=== PATIENT | male | born 1945 | race Caucasian/White ===

== ENCOUNTER → 2021-05-31 07:15 | Outpatient (CLI) | payer MEDICARE, SELFPAY ==
--- NOTE | 2021-05-31 07:25 | CT_ITS ---
PROCEDURE: CT LUNG SCREENING CLINICAL INDICATION: NICOTINE DEPENDENCE COMPARISON: CT CHW CT CHEST W/ CONTRAST from 06/20/2015 TECHNIQUE: The exam was performed on a GE Light Speed [address] scanner using 2.90 mGy CTDI. A low dose helical CT CHEST was performed on a multi-detector scanner. All CT scans at the facility use one or more dose reduction, viz: automated exposure control, ma/kV adjustment per patient size (including targeted exams where dose is matched to indication, i.e. head), or iterative reconstruction technique. The LDCT was performed in a facility that meets the criteria for the screening program. Data regarding this exam was submitted to ACR which is an approved registry. The order for this exam indicates that it came as a result of a lung cancer screening counseling shard decision-making visit that included all the elements required of such a visit including smoking cessation. The radiologist interpreting this exam meets the CMS criteria for the LDCT lung cancer screening program. The exam is reported using the Lung-RADS classification scale and reported to the ACR registry. NOTE: This study was performed for the specific purposes of lung cancer screening and is not an alternative to diagnostic chest CT. RADIATION DOSE: CTDI vol(CT dose Index-volume) = 2.90mG DLP (Dose Length Product) = 123. Five mGcm FINDINGS: COPD with severe panlobular emphysematous changes and multiple areas of scarring. A bulla is present in the left upper lobe with an air-fluid level. There is an area of parenchymal opacity along the inferior aspect of the right major fissure measuring 3 by 1 cm and may be due to an area of scarring. This was not present on the previous exam. Neoplastic process is not excluded and PET CT is suggested for further evaluation. There is a subpleural opacity in the left upper lobe which may be due to an area scarring with a central lucency. Scarring is noted along the left major fissure superiorly inferior to the bulla which contains an air-fluid level. The trachea is prominent. There is a nodular appearing soft tissue density along the left lateral aspect of the trachea 3 cm proximal to the anna. This area measures 9 mm and could be related to some adherent mucus. Repeat chest CT following prominent coughing neck confirm. OTHER FINDINGS: Coronary artery calcifications. Mild prominence of the ascending aorta at 4 cm. IMPRESSION: Lung-RADS Category 4A Suspicious Follow-up: 3 x 1 cm opacity along the right major fissure inferiorly. The this may be due to an area of scarring. Neoplasm is not excluded. [address] Chest without and with contrast or PET/CT Severe emphysematous changes. There is an air-fluid level within the left upper lobe bulla consistent with underlying infected bulla. There is also nodular opacity along the left aspect of the trachea. Repeat chest CT with excessive coughing may confirm that this is adherent mucus as opposed to a nodule. Consider pulmonology consult. Dictated by: Omer Hutchison MD 06/05/2021 09:53 Omer Hutchison MD in [place] 06/05/2021 09:53
== END ==
PROVIDERS: PCP Family Medicine; Visit Provider Family Medicine
DX: Z87.891 Personal history of nicotine dependence (principal); Z12.2 Encounter for screening for malignant neoplasm of respiratory organs; R06.02 Shortness of breath
CPT/HCPCS: 71271; 94618

== ENCOUNTER → 2021-09-06 11:57 | Outpatient (CLI) | payer MEDICARE, MEDICAID, SELFPAY ==
--- NOTE | 2021-09-06 12:08 | CT_ITS ---
PROCEDURE INFORMATION: Exam: CT Chest Without and With Contrast; Diagnostic Exam date and time: 09/06/2021 12:08 PM Age: 76 years old Clinical indication: Abnormal findings; Lung mass or nodule; Not specified; Patient HX: Follow-up nodule; Additional info: Follow up TECHNIQUE: Imaging protocol: Diagnostic computed tomography of the chest without and with contrast. Radiation optimization: All CT scans at this facility use at least one of these dose optimization techniques: automated exposure control; mA and/or kV adjustment per patient size (includes targeted exams where dose is matched to clinical indication); or iterative reconstruction. Contrast material: ISOVUE; Contrast volume: 75 ml; Contrast route: IV; COMPARISON: [facility] CT CHEST W/ CONTRAST 06/20/2015 9:38 AM FINDINGS: Lungs: Severe upper lobe predominant emphysema with extensive scattered fibronodular scarring. Unchanged spiculated 1.6 x 1.6 x 3.0 cm nodule in the anterior basal right lower lobe adjacent to the fissure (series 3, image 70), which appears to have central cavitation, limiting evaluation for enhancement. Unchanged 2.5 x 1.1 cm zone of plaque-like pleural thickening in the superior segment of the right lower lobe (series 3, image 39). Interval development of an irregularly shaped 4.0 x 3.3 cm mass-like opacity with mild heterogeneous enhancement in the left lower lobe, likely representing pneumonia given short-term interval development. Airway: Previously demonstrated nodular foci along the tracheal wall are not clearly seen currently, probably represented retained secretions/debris that have since been cleared. Pleural spaces: Similar appearance of fluid within a large bulla near the left apex, which could represent infected bulla, or could represent a chronic loculated effusion given the adjacent scarring. Heart: Normal heart size. Scattered mild coronary calcifications, not formally quantified on this study. No pericardial effusion. Aorta: Fusiform ectasia of the ascending thoracic aorta, measuring up to 3.9 cm in caliber. No dissection. Lymph nodes: No enlarged lymph nodes. Bones/joints: Several old rib fractures bilaterally. Chronic mild anterior wedging of midthoracic vertebral bodies. Mild spondylosis. Soft tissues: Unremarkable. IMPRESSION: 1. Spiculated 1.6 x 1.6 x 3.0 cm nodule in the right lower lobe anterior to the fissure is unchanged compared to recent study of 05/31/2021, and remains indeterminate/suspicious. Advise either PET-CT, sampling/excision, or continued follow-up as appropriate. (Reference: Petros) 2. Ill-defined pneumonia in the left lower lobe. 3. Similar appearance of fluid within a left apical bulla, possibly related to an infectious process, versus loculated fluid due to adjacent scarring. 4. Severe emphysema. 5. Unchanged borderline aneurysmal dilation of the ascending thoracic aorta. References: Petros Valdez, et al. Guidelines for Management of Incidental Pulmonary Nodules Detected on CT Images: From the Fleischner Society 2017. Radiology. 2017;284(1):228-243.
[2021-09-06 12:38] LABS: Blood Urea Nitrogen 8 mg/dl (9-20); Estimated Glomerular Filt Rate 110 ml/min (>60); GFR (African American) 133 ML/MIN (>60)
== END ==
PROVIDERS: PCP Family Medicine; Visit Provider Family Medicine
DX: Z09 Encounter for follow-up examination after completed treatment for conditions other than malignant neoplasm (principal)
CPT/HCPCS: 36415; 71270; 82565; 84520; Q9967

== ENCOUNTER → 2022-01-16 08:32 | Outpatient (CLI) | payer MEDICARE, MEDICAID, SELFPAY ==
--- NOTE | 2022-01-16 08:32 | CT_ITS ---
FINAL REPORT TECHNIQUE: Axial images were obtained from the lung apex to the mid abdomen by computed tomography. Coronal reformatted images were obtained. This study was performed with techniques to keep radiation doses as low as reasonably achievable, (ALARA). Individualized dose reduction techniques using automated exposure control or adjustment of mA and/or kV according to the patient''s size were employed. CLINICAL HISTORY: Nodule, very soa today. smoker COMPARISON: September 06, 2021 FINDINGS: There is no axillary adenopathy. There is no hilar or mediastinal adenopathy. Heart size is normal. There is no pericardial or pleural effusion. Limited images of the upper abdomen demonstrates ectasia of the ascending aorta measuring 4.0 cm, stable. On the lung window images there is severe emphysema. There is moderate pulmonary scarring. There is a stable 1.6 cm spiculated nodular opacity in the anterior right lower lobe with possible cavitary component. There is a 2.5 x 1.0 stable pleural based soft tissue thickening in the posterior right lower lobe. There is a spiculated soft tissue opacity in the lateral left lower lobe measuring 3.7 x 2.0 cm and previously measured 3.8 x 1.3 cm at the same level. It appears visually larger and it's appearance is worrisome for a neoplasm or could possibly represent organizing pneumonia. IMPRESSION: Spiculated soft tissue opacity in the lateral left lower lobe, worrisome for neoplasm or possibly organizing pneumonia. Recommend PET-CT and/or CT-guided FNA for further evaluation. Stable spiculated nodular opacity in the anterior right lower lobe. Stable pleural based soft tissue thickening in the posterior right lower lobe. Stable ectasia of the ascending aorta. Reviewed, Interpreted and Dictated by Ric Wade III, MD Transcribed by Rukhsana Murphy Authenticated by Ric Wade III, MD on 01/16/2022 10:10:36 AM [facility]
--- NOTE | 2022-01-16 10:15 | PC.NURSE ---
PFT Completed without incident. Albuterol 0.083% given via HHN, per written protocol, Pt tolerated tx well. 6 Minute Walk Test attempted Pt walked for 3 minutes and stopped due to SOB. See further notes on 6 Minute Walk Test form. Lowest SPO2 reading for duration of walking and total test 96%.
== END ==
PROVIDERS: PCP Family Medicine; Visit Provider Internal Medicine Pulmonary Disease
DX: R91.8 Other nonspecific abnormal finding of lung field (principal); R06.00 Dyspnea, unspecified
CPT/HCPCS: 71250; 94060; 94618; 94726; 94729; 94762

== ENCOUNTER 2022-11-20 18:25 | Emergency (ER) | payer MEDICARE, MEDICAID, SELFPAY ==
[2022-11-20] VITALS (9 sets, daily range): BP systolic 117–147; BP diastolic 52–86; PULSE 71–87; RESP 19; TEMP 36.7–36.9; O2SAT 95–99; BMI 17.6
--- NOTE | 2022-11-20 18:50 | XR_ITS ---
PROCEDURE INFORMATION: Exam: XR Chest Exam date and time: 11/20/2022 7:21 PM Age: 77 years old Clinical indication: Patient HX: Dyspnea, smoker. TECHNIQUE: Imaging protocol: Radiologic exam of the chest. Views: 1 view. COMPARISON: CT CHEST WO CON 01/16/2022 8:47 AM FINDINGS: Lungs: Moderate generalized hyperexpansion and diaphragmatic flattening consistent with severe emphysema. Pulmonary vasculature grossly normal. Somewhat bandlike consolidative densities in the left upper lobe are new/increased since CT 01/16/2022. This could represent pneumonia or atelectasis. Can not exclude pleural-based mass lesion laterally with somewhat rounded component measuring 3.5 cm diameter extending to the pleural margin. Recommend either nonemergent CT assessment or radiographic follow-up to document clearance with treatment. Pleural spaces: No pleural effusion. No pneumothorax. Heart/Mediastinum: Heart size normal. No tracheal/mediastinal shift. Bones/joints: No acute osseous abnormalities are identified. Osteopenia. IMPRESSION: 1. New alveolar opacities in the left upper lobe extending to the lateral pleural margin with somewhat rounded components. This could represent pneumonia, atelectasis, or underlying mass lesion. Recommend nonemergent postcontrast chest CT, or further short-term radiographic follow-up to document clearance with treatment. 2. Underlying severe emphysematous changes.
--- NOTE | 2022-11-20 18:53 | ECG_ITS ---
APPROVED REPORT Exam: Resting ECG HR:77 bpm ECG Measurements Heart Rate 77 AXES MA 183 P 88 QRSd 84 QRS 82 QT 371 T 87 QTc 402 Conclusion SINUS RHYTHM NORMAL ECG UNCONFIRMED REPORT Electronically signed by : Rigo Pascual MD 11/21/2022 14:13:03
[2022-11-20 19:15] LABS: Coronavirus 19, PCR Not Detected (NotDetected); Influenza A, PCR Not Detected (NotDetected); Influenza B, PCR Not Detected (NotDetected)
[2022-11-20 19:19] LABS: Alanine Aminotransferase 34 U/L (12-78); Albumin Level 3.5 g/dl (3.5-5.0); Albumin/Globulin Ratio 1.1 (1.1-1.8); Alkaline Phosphatase 85 U/L (38-126); Aspartate Amino Transferase 44 U/L (17-59); Bilirubin,Total 0.5 mg/dl (0.2-1.3); Blood Urea Nitrogen 13 mg/dl (9-20); Calcium 8.7 mg/dl (8.4-10.2); Carbon Dioxide 33 mmol/L (22.0-30.0); Chloride 98 mmol/L (98-107); Creatinine Clearance Estimated 45 mL/min (50-200); Estimated Glomerular Filt Rate 110 ml/min (>60); GFR (African American) 133 ML/MIN (>60); Globulin 3.1 g/dL (1.3-3.2); Glucose 103 mg/dl (74-100); Sodium 132 mmol/L (136-145); Total Protein,Serum 6.6 g/dl (6.3-8.2)
[2022-11-20 19:28] LABS: Basophils % 0.3 % (0.1-2.0); Eosinophils # 0.1 K/mm3 (0.0-0.4); Eosinophils % 0.6 % (0.1-12.0); Hematocrit 35.8 % (42.0-52.0); Hemoglobin 11.5 g/dL (14.1-18.0); Lymphocytes # 0.8 K/mm3 (0.7-4.5); Lymphocytes % 6.4 % (10-50); Mean Corpuscular HGB Conc 32.2 g/dL (31.8-35.4); Mean Corpuscular Hemoglobin 27.6 pg (27.0-31.2); Mean Corpuscular Volume 85.7 fl (80-94); Monocytes # 0.7 K/mm3 (0.1-1.0); Neutrophils % 86.6 % (37.0-80.0); Platelet Count 607 K/mm3 (142-424); Red Blood Count 4.18 M/mm3 (4.60-6.20); Red Cell Distribution Width 13.8 % (11.5-17.5); White Blood Count 11.6 K/mm3 (4.8-10.8)
[2022-11-20 19:33] LABS: NT Pro Brain Natriuretic Pep. 177 pg/mL (0-450)
--- NOTE | 2022-11-20 19:35 | HMH.EDGENADL ---
Discharge Plan Disposition Patient Disposition: Home, Self-Care Condition: Good Prescriptions Prescriptions: New levofloxacin 500 mg tablet 500 mg PO DAILY 10 Days Qty: 9 0RF prednisone 10 mg tablet 10 mg PO BID 5 Days Qty: 10 0RF No Action Spiriva Respimat 2.5 mcg/actuation mist 2 inh INHALATION DAILY albuterol sulfate [ProAir HFA] 90 mcg/actuation HFA aerosol inhaler 2 puff INHALATION QID ipratropium-albuterol 0.5 mg-3 mg(2.5 mg base)/3 mL solution for nebulization 3 ml INHALATION QID PRN (Reason: shortness of breath or wheezing) 90 Days Qty: 270 3RF Referrals Follow up/Referrals: Taylor Richmond APRN [Primary Care Provider] - See instructions Hemal Zavala MD [Physician] - See instructions (End-stage COPD, discussed oxygen therapy) Clinical Impressions Clinical Impression: Community acquired pneumonia, Acute exacerbation of chronic obstructive airways disease Instructions Patient Instructions: Pneumonia-Adult, DI for Chronic Obstructive Pulmonary Disease, DI for Shortness of Breath Discharge ED Provider: Jensen Bacon General Adult HPI <Jensen Bacon MD - Last Filed: 11/20/22 20:33> General Chief complaint: Shortness of Breath/Dyspnea Stated complaint: SOA Time Seen by Provider: 11/20/22 18:45 Mode of Arrival: Ambulatory Source of Information: Patient Limitations: No Limitations Description of Symptoms (Recalled from ER Triage Doc. by RN): 77 m presents with chronic complaints of shortness of air and dyspnea on exertion. Patient explains that he is in between PCP's and is trying to get oxygen at home. Denies fever, chills, chest pain History of Present Illness HPI narrative: This is a 77-year-old male with history of COPD on numerous daily inhalers presenting with shortness of breath. Patient states that he has been short of breath since July. No acute changes since that time. He is concerned because he has been getting more short of breath since that time chronically. Denies fevers, chills, new or worsening cough, chest pain, weakness, vision changes, back pain, abdominal pain, nausea, vomiting, or any other concerns at this time. Patient states that he is unable to walk more than 40 feet or exert himself heavily because he feels short of breath. Related Data Home Medications Medication Instructions Recorded Confirmed albuterol sulfate 90 mcg/actuation 2 puff inhalation QID COPD 10/31/21 11/20/22 aerosol inhaler (ProAir HFA) tiotropium bromide 2.5 2 inh inhalation DAILY COPD 10/31/21 11/20/22 mcg/actuation mist for inhalation (Spiriva Respimat) Previous Rx's Medication Instructions Recorded ipratropium 0.5 mg-albuterol 3 mg 3 ml inhalation QID PRN shortness 11/02/21 (2.5 mg base)/3 mL nebulization of breath or wheezing 90 days #270 soln mL levofloxacin 500 mg tablet 500 mg PO DAILY 10 days #9 tabs 11/20/22 prednisone 10 mg tablet 10 mg PO BID 5 days #10 tabs 11/20/22 Allergies Allergy/AdvReac Type Severity Reaction Status Date / Time Penicillins AdvReac Intermediate Unknown Verified 01/22/22 13:37 allergy reaction PFSH <Jensen Bacon MD - Last Filed: 11/20/22 20:33> [facility] Disclaimer: The information contained in this section may have been updated after the patient was seen, as this information can be updated by other users. Social History Smoking Status: Current every day smoker tobacco type: cigarettes packs per day: 1 alcohol intake: current current occupational status: retired Travel in the last 8 weeks: None <Jensen Bacon MD - Last Filed: 11/20/22 20:33> ROS Obtained: Yes All systems reviewed & no additional complaints except as documented Physical Exam <Jensen Bacon MD - Last Filed: 11/20/22 20:33> General General appearance: alert, in no apparent distress and other (Breathing through pursed lips) Head Head exam: atraumatic, normocephalic and normal inspection Eye Eye exam: Present normal appeara
[2022-11-20 19:45] LABS: Troponin I < 0.01 ng/ml (0.00-0.034)
[2022-11-20 19:47] LABS: MANUAL DIFFERENTIAL MANUAL DIFFERENTIAL (MANUAL DIFF)
--- NOTE | 2022-11-20 20:00 | PC.NURSE ---
Room air saturation of 96% recorded during ambulation. notified.
[2022-11-20 20:14] LABS: VBG HCO3 28.2 mmol/L (23-30); VBG Oxygen Saturation 44.4 % (50-70); VBG PCO2 49.6 mmol/L (35-51); VBG PH 7.37 mmol/L (7.31-7.41); VBG PO2 26.4 mmol/L (28-40); VBG Total CO2 29.7 mmol/L (23-27)
--- NOTE | 2022-11-20 20:15 | CT_ITS ---
PROCEDURE INFORMATION: Exam: CT Chest Without Contrast; Diagnostic Exam date and time: 11/20/2022 8:25 PM Age: 77 years old Clinical indication: Abnormal findings; Abnormal radiologic exam of lung or chest; Additional info: SOB TECHNIQUE: Imaging protocol: Diagnostic computed tomography of the chest without contrast. Radiation optimization: All CT scans at this facility use at least one of these dose optimization techniques: automated exposure control; mA and/or kV adjustment per patient size (includes targeted exams where dose is matched to clinical indication); or iterative reconstruction. REPORTING DATA: Count of CT and Cardiac NM exams in prior 12 months: This patient has received [address] and 0 known cardiac nuclear medicine studies in the 12 months prior to the current study. COMPARISON: CT CHEST WO CON 01/16/2022 8:47 AM FINDINGS: Thyroid: The visualized thyroid gland is unremarkable. Lungs: Severe panlobular emphysematous changes involving the mid and upper lung broussard most severely. New alveolar opacities in the anterolateral left upper lobe extending into the perihilar region with mild local volume loss. New bandlike alveolar density with consolidative components in the lateral right lower lobe superior segment along the major fissure. This could represent multifocal pneumonia or atelectasis. Recommend CT follow-up to document clearance with treatment to exclude underlying mass. Previous masslike ovoid region in the left lower lobe seen on 01/16/2022 has significantly regressed in size, currently 2.3 x 1.0 cm, favoring regressing organizing pneumonia or post treatment response if there is history of malignancy. Granulomatous calcification in the spleen. Pleural spaces: Small left pleural effusion. No pneumothorax. Heart: Heart size normal. Mediastinal space: The esophagus is largely contracted without gross abnormality. Lymph nodes: No supraclavicular or axillary adenopathy. No mediastinal or hilar adenopathy. Vasculature: Aneurysmal dilatation of the ascending aortic segment at 4.4 cm diameter is unchanged from 01/16/2022. No evidence of acute rupture. No gross features of dissection by noncontrast technique. No mediastinal hematoma. Question mild dilatation of the central pulmonary arteries suspicious for pulmonary arterial hypertension. Bones/joints: No acute osseous abnormalities are identified. Osteopenia. 6 mm bone island in the right posterior 7th rib unchanged. Mild midthoracic spondylosis and multilevel disc degenerative changes. Soft tissues: Paucity of fat suspicious for generalized cachexia. IMPRESSION: 1. New consolidative alveolar densities in the peripheral left upper lobe extending to the left superior hilar distribution, and additional consolidative density in the peripheral right lower lobe superior segment. These are somewhat bandlike and might represent atelectasis in large part although can not exclude multifocal pneumonia. No definite underlying mass lesions are appreciated although recommend CT follow-up to document clearance given the somewhat rounded nature. 2. The previous masslike density in the left lower lobe superior segment on 01/16/2022 is significantly regressed, consistent with regressing changes of prior organizing pneumonia, versus post treatment response if there is history of malignancy. 3. Aneurysmal dilatation of the ascending aorta at 4.4 cm diameter is unchanged without evidence of rupture or dissection. 4. Severe emphysematous changes and mild changes of pulmonary arterial hypertension. 5. Additional nonemergent findings detailed above. Electronically
[2022-11-20 21:18] LABS: Lymphocytes % 9 % (10-50); Monocytes % 3 % (2-9); Neutrophils % 88 % (42-76); Total Cells Counted 100
[2022-11-20 21:20] LABS: Ovalocytes 1+; Platelet Estimate Normal
== END 2022-11-20 21:31 | disposition home or self-care (01) ==
PROVIDERS: Emergency Provider Emergency Medicine; PCP Nurse Practitioner Family
DX: J18.9 Pneumonia, unspecified organism (principal); J44.1 Chronic obstructive pulmonary disease with (acute) exacerbation; F17.210 Nicotine dependence, cigarettes, uncomplicated; Z20.822 Contact with and (suspected) exposure to COVID-19
CPT/HCPCS: 71045; 71250; 80053; 82803; 83880; 84484; 85007; 85025; 93005; 96374; 99285; C9803; U0003; U0005

== ENCOUNTER → 2022-12-31 09:27 | Outpatient (CLI) | payer MEDICARE, MEDICAID, SELFPAY ==
[2022-12-28 13:02] LABS: Basophils # 0.1 K/mm3 (0-0.2); Basophils % 0.6 % (0.1-2.0); Eosinophils % 0.2 % (0.1-12.0); Hemoglobin 11.4 g/dL (14.1-18.0); Lymphocytes # 0.8 K/mm3 (0.7-4.5); Lymphocytes % 5.2 % (10-50); Mean Corpuscular HGB Conc 29.9 g/dL (31.8-35.4); Mean Corpuscular Hemoglobin 26.2 pg (27.0-31.2); Mean Corpuscular Volume 87.6 fl (80-94); Mean Platelet Volume 7.6 fl (7.4-10.4); Monocytes # 0.8 K/mm3 (0.1-1.0); Monocytes % 5.2 % (1.7-9.3); Neutrophils # 13.5 K/mm3 (1.8-7.8); Neutrophils % 88.8 % (37.0-80.0); Platelet Count 685 K/mm3 (142-424); Red Blood Count 4.35 M/mm3 (4.60-6.20); Red Cell Distribution Width 14.6 % (11.5-17.5); White Blood Count 15.2 K/mm3 (4.8-10.8)
[2022-12-28 13:04] LABS: MANUAL DIFFERENTIAL MANUAL DIFFERENTIAL (MANUAL DIFF)
[2022-12-28 14:09] LABS: Lymphocytes % 5 % (10-50); Monocytes % 2 % (2-9); Neutrophils % 93 % (42-76); Platelet Estimate Marked Increase; Total Cells Counted 100
[2022-12-28 14:10] LABS: RBC Morphology Normal
[2023-01-01 18:13] LABS: QuantiFERON-TB Gold Plus Negative (Negative)
[2023-01-02 00:03] LABS: Aspergillus flavus Negative (Neg:<1:1); Aspergillus fumigatus Negative (Neg:<1:1); Aspergillus niger Negative (Neg:<1:1); Blastomyces Antibody Negative (Neg:<1:1)
== END ==
PROVIDERS: PCP Family Medicine; Visit Provider Internal Medicine Pulmonary Disease
DX: R06.09 Other forms of dyspnea (principal); J84.10 Pulmonary fibrosis, unspecified; J45.909 Unspecified asthma, uncomplicated; J18.9 Pneumonia, unspecified organism
CPT/HCPCS: 36415; 85007; 85025; 86140; 86480; 86606; 86612; 87070; 87116; 87186; 87205; 87206; 87220

== ENCOUNTER → 2023-02-15 10:08 | Outpatient (CLI) | payer MEDICARE, MEDICAID, SELFPAY ==
--- NOTE | 2023-02-15 10:08 | CT_ITS ---
FINAL REPORT TECHNIQUE: Axial images were obtained from the lung apex to the mid abdomen by computed tomography. Coronal reformatted images were obtained. This study was performed with techniques to keep radiation doses as low as reasonably achievable, (ALARA). Individualized dose reduction techniques using automated exposure control or adjustment of mA and/or kV according to the patient''s size were employed. CLINICAL HISTORY: 3-month follow-up NODULE COMPARISON: 11/20/2022 FINDINGS: There is no axillary adenopathy. There are small mediastinal nodes without evidence of adenopathy. Heart size is normal. There is severe emphysema. There is worsening consolidation in the left upper lobe. There is also worsening volume loss in the left lung with shift of the mediastinum to the left. There has been interval improvement in the focal lateral left upper lobe opacity which now measures 22 mm, previously measured 40 mm. Left lower lobe nodular opacity measures 21 mm, previously measured 24 mm. There is a persistent cavitary area in the posterior left mid thorax which now has a large fluid level within it. Nodular opacity near the right major fissure measures 25 mm, previously measured 30 mm. There is a worsening area of left pleural thickening. Small loculated left effusion is stable. IMPRESSION: Worsening consolidation in the left upper lobe, most likely inflammatory/infectious. Partially improved other previously identified focal opacities. Worsening fluid in a posterior left lung cavity, most likely inflammatory. Recommend additional follow-up CT in 3-6 months. Reviewed, Interpreted and Dictated by Ric Wade III, MD Transcribed by Venessa Aguero Authenticated and [facility]
== END ==
PROVIDERS: PCP Family Medicine; Visit Provider Internal Medicine Pulmonary Disease
DX: R91.8 Other nonspecific abnormal finding of lung field (principal)
CPT/HCPCS: 71250

== ENCOUNTER → 2023-02-15 11:45 | Outpatient (CLI) | payer MEDICARE, MEDICAID, SELFPAY ==
[2023-02-15 13:05] LABS: Basophils % 0.3 % (0.1-2.0); Eosinophils # 0.1 K/mm3 (0.0-0.4); Eosinophils % 0.9 % (0.1-12.0); Hematocrit 34.4 % (42.0-52.0); Hemoglobin 10.6 g/dL (14.1-18.0); Lymphocytes # 0.9 K/mm3 (0.7-4.5); Lymphocytes % 8.6 % (10-50); Mean Corpuscular HGB Conc 30.8 g/dL (31.8-35.4); Mean Corpuscular Hemoglobin 26.1 pg (27.0-31.2); Mean Corpuscular Volume 84.7 fl (80-94); Mean Platelet Volume 7.2 fl (7.4-10.4); Monocytes # 0.7 K/mm3 (0.1-1.0); Monocytes % 6.7 % (1.7-9.3); Neutrophils # 9.2 K/mm3 (1.8-7.8); Neutrophils % 83.5 % (37.0-80.0); Platelet Count 556 K/mm3 (142-424); Red Blood Count 4.06 M/mm3 (4.60-6.20); Red Cell Distribution Width 15.8 % (11.5-17.5)
[2023-02-15 13:39] LABS: Alanine Aminotransferase 33 U/L (12-78); Albumin Level 3.1 g/dl (3.5-5.0); Albumin/Globulin Ratio 1.2 (1.1-1.8); Alkaline Phosphatase 81 U/L (38-126); Anion Gap 16.9 mEq/L (5-15); Aspartate Amino Transferase 29 U/L (17-59); Bilirubin,Total 0.2 mg/dl (0.2-1.3); Blood Urea Nitrogen 12 mg/dl (9-20); Carbon Dioxide 33 mmol/L (22.0-30.0); Chloride 91 mmol/L (98-107); Estimated Glomerular Filt Rate 131 ml/min (>60); GFR (African American) 159 ML/MIN (>60); Globulin 2.6 g/dL (1.3-3.2); Glucose 77 mg/dl (74-100); Potassium 4.9 mmoL/L (3.5-5.1); Sodium 136 mmol/L (136-145); Total Protein,Serum 5.7 g/dl (6.3-8.2)
[2023-02-15 13:44] LABS: C-Reactive Protein 58.3 mg/L (0-4)
== END ==
LOC: LAB 11:46
PROVIDERS: PCP Family Medicine; Visit Provider Internal Medicine Pulmonary Disease
DX: J45.909 Unspecified asthma, uncomplicated (principal); J84.9 Interstitial pulmonary disease, unspecified; R06.09 Other forms of dyspnea
CPT/HCPCS: 36415; 71250; 80053; 85025; 86140

== ENCOUNTER → 2023-02-26 12:04 | Outpatient (CLI) | payer MEDICARE, MEDICAID, SELFPAY ==
--- NOTE | 2023-02-26 12:05 | CA_ITS ---
APPROVED REPORT Exam: Pharmacologic Technologist: Marissa Pires, Ht: 5 ft 11 in Wt: 105 lbs BSA: 1.60 m2 HR: 77 bpm BP: 109/50 mmHg Rhythm: NSR, PACS, EARLY REPOLARIZATION CHANGES, RIGHT CAPELLAN AXIS, BASELINE UPSLOPING ST-ELEVATIONS < 1 MM IN INFEROLATERAL LEADS Medical History Medications: SyMBICORT,,,,, Albuterol,,,,, Spiriva RESPIMAT,,,,, Allergies: PENICILLIN Cardiac Risk Factors: Smoking Stress Test Details Test: LEXISCAN HR Resting HR: 76 bpm Max Heart Rate (APMHR): 144 bpm Max HR Achieved: 87 bpm Target HR (85% APMHR): 122 bpm % of APMHR: 60 Recovery HR: 77 bpm BP Resting BP: 123/51 mmHg Max BP: 125/60 mmHg Recovery BP: 109.0/50.0 mmHg ECG Resting ECG: NSR, PACS, EARLY REPOLARIZATION CHANGES, RIGHTWARD AXIS, BASELINE UPSLOPING ST-ELEVATION < 1 MM IN INFEROLATERAL LEADS Stress ECG: FREQUENT PACS, OCCASIONAL BURSTS OF ATRIAL TACHYCARDIA 4-5 BEATS Clinical Exercise duration: 04:06 min Highest Stage Achieved: Exercise capacity: n/a METs Stress ECG Conclusion PT HAD MILD SOA. NO CP. BASELINE ECG DEMONSTRATES NORMAL SINUS RHYTHM, FREQUENT PACS, AND MINIMAL < [address] ELEVATION IN INFEROLATERAL LEADS FREQUENT PACS AT REST AND DURING STRESS AND AT RECOVERY OCCASIONAL BURSTS OF ATRIAL TACHYCARDIA 4-5 BEATS DURING STRESS NO SIGNIFICANT CHANGES NON-DIAGNOSTIC LEXISCAN STRESS DUE TO BASELINE ABNORMALITIES MYOVIEW IMAGES REPORTED SEPARATELY Test Summary REST 08:17 . . 76 . 123/ 51 . . Stage 1 . . . . . . . Myoview Injected Stage 1 01:00 . . 85 . . . . Stage 2 01:00 . . 84 . 125/ 60 . . Stage 3 01:00 . . 59 . . . . Stage 4 01:00 . . 64 . 107/ 48 . . Stage 4 01:06 . . 76 . 107/ 48 . Stop exercise at 04:06 RECOVERY 01:00 . . 79 . . . . RECOVERY 02:00 . . 82 . 121/ 54 . . RECOVERY 03:00 . . 71 . 121/ 54 . . RECOVERY 04:00 . . 71 . 109/ 53 . . RECOVERY 04:45 . . 80 . 109/ 50 . . Electronically signed by : Karissa Raymond, 02/27/2023 23:04:23
--- NOTE | 2023-02-26 12:05 | NM_ITS ---
APPROVED REPORT Exam: Nuclear Stress Test Indication: chest pain..soa Patient Location: Outpatient Stress Tech: Marissa Pires [place] Tech:Maki An ANDRE RT (R)(N)(M) Ht: 5 ft 11 in Wt: 103 lbs HR: 72 bpm BP: 123/51 mmHg BSA: 1.59 m2 TID: 0.96 BMI: 14.3 History: chest pain..soa Procedure: Patient received 0.4 mg of intravenous Lexiscan, resting heart rate 72 bpm, resting blood pressure 123/51 mmHg, with Lexiscan maximum heart rate achieved was 82 bpm which is 85 % of the maximum predicted heart rate and blood pressure was 125/60 mmHg. With Lexiscan, patient denied any complaint of chest pain. Cardiac Stress and Resting SPECT Images: Cardiac Stress and Resting SPECT images were obtained using technetium 99m Myoview 31.3 mCi stress and 10.32 mCi at rest. Resting and supine stress imaging demonstrate a large-sized, moderate, fixed perfusion defects in the mid to distal anteroseptal and in the apical LV wall. Both defects are no longer visualized with prone stress imaging. Findings are suggestive of soft tissue attenuation, but true perfusion defects cannot be entirely ruled out. Gated imaging demonstrates normal LV global and regional systolic function. LVEF is calculated at 63%. Conclusion: Soft tissue attenuation is present. No definite reversible or fixed perfusion defects. Gated imaging demonstrates normal LV global and regional systolic function. LVEF is calculated at 63%. Electronically signed by : Karissa Raymond, 02/27/2023 23:13:05
== END ==
PROVIDERS: PCP Family Medicine; Visit Provider Physician Assistant
DX: R06.09 Other forms of dyspnea; R07.89 Other chest pain; J43.9 Emphysema, unspecified; R94.31 Abnormal electrocardiogram [ECG] [EKG]; F17.210 Nicotine dependence, cigarettes, uncomplicated
CPT/HCPCS: 78452; 93017; 93306; A9502; J2785

== ENCOUNTER → 2023-04-19 10:49 | Outpatient (CLI) | payer MEDICARE, MEDICAID, SELFPAY ==
[2023-04-19 11:15] LABS: Chloride 99 mmol/L (98-107)
[2023-04-19 11:16] LABS: Potassium 4.4 mmoL/L (3.5-5.1); Sodium 136 mmol/L (136-145)
[2023-04-19 11:18] LABS: Alanine Aminotransferase 19 U/L (12-78); Alkaline Phosphatase 114 U/L (38-126); Aspartate Amino Transferase 28 U/L (17-59); Bilirubin,Total 0.3 mg/dl (0.2-1.3); Blood Urea Nitrogen 11 mg/dl (9-20); Estimated Glomerular Filt Rate 131 ml/min (>60); GFR (African American) 159 ML/MIN (>60)
[2023-04-19 11:19] LABS: Albumin Level 3.7 g/dl (3.5-5.0); Albumin/Globulin Ratio 1.2 (1.1-1.8); Anion Gap 6.4 mEq/L (5-15); Carbon Dioxide 35 mmol/L (22.0-30.0); Globulin 3.2 g/dL (1.3-3.2); Glucose 99 mg/dl (74-100); Total Protein,Serum 6.9 g/dl (6.3-8.2)
[2023-04-19 11:24] LABS: C-Reactive Protein 25.7 mg/L (0-4)
[2023-04-19 14:04] LABS: Basophils % 0.4 % (0.1-2.0); Eosinophils % 1.3 % (0.1-12.0); Hematocrit 38.8 % (42.0-52.0); Hemoglobin 12.5 g/dL (14.1-18.0); Lymphocytes % 8.3 % (10-50); Mean Corpuscular HGB Conc 32.2 g/dL (31.8-35.4); Mean Corpuscular Hemoglobin 27.5 pg (27.0-31.2); Mean Corpuscular Volume 85.5 fl (80-94); Mean Platelet Volume 10.4 fl (7.4-10.4); Monocytes % 8.1 % (1.7-9.3); Neutrophils % 81.8 % (37.0-80.0); Platelet Count 325 K/mm3 (142-424); Red Blood Count 4.54 M/mm3 (4.60-6.20); Red Cell Distribution Width 16.7 % (11.5-17.5); White Blood Count 6.8 K/mm3 (4.8-10.8)
[2023-04-19 14:05] LABS: Eosinophils # 0.1 K/mm3 (0.0-0.4); Lymphocytes # 0.6 K/mm3 (0.7-4.5); Monocytes # 0.6 K/mm3 (0.1-1.0); Neutrophils # 5.5 K/mm3 (1.8-7.8)
== END ==
PROVIDERS: PCP Family Medicine; Visit Provider Internal Medicine Pulmonary Disease
DX: R93.89 Abnormal findings on diagnostic imaging of other specified body structures (principal); A31.0 Pulmonary mycobacterial infection
CPT/HCPCS: 36415; 80053; 85025; 86140

== ENCOUNTER 2023-11-13 14:25 | Outpatient (CLI) | payer MEDICARE, SELFPAY ==
--- NOTE | 2023-11-13 14:26 | CT_ITS ---
FINAL REPORT TECHNIQUE: Axial CT images were performed from the lung apices through the upper abdomen. Coronal reformats were submitted. This study was performed with techniques to keep radiation doses as low as reasonably achievable (ALARA). Individualized dose reduction techniques using automated exposure control or adjustment of mA and/or kV according to the patient's size were employed. CLINICAL HISTORY: 6 mth F/U COMPARISON: 02/15/2023 FINDINGS: There is no axillary adenopathy. There is no hilar or mediastinal mass or adenopathy. Heart size is normal. There is no pericardial or pleural effusion. Limited images of the upper abdomen are unremarkable. There is worsening consolidation in the left upper lobe since the prior with worsening shift of the mediastinum to the left. There has been further improvement in the left upper lobe nodule opacity well seen on image 32 measuring 9 mm, previously measured 23 mm. There is a stable left lower lobe nodule opacity measuring 21 mm, previously measured 21 mm. Left posterior pleural thickening is identified. There is been slight improvement in the cavitary area in the left posterior mid thorax. IMPRESSION: Worsening consolidation and volume loss in the left upper lobe, most likely inflammatory. Further improvement in the left upper lobe nodular opacity and slight improvement in the cavitary area in the left posterior midthorax. Other findings are stable. Recommend additional follow-up in 6 months. Reviewed, Interpreted and Dictated by Ric Wade III, MD Transcribed by Venessa Aguero Authenticated and [facility] [place] [place]
== END 2023-11-13 23:59 ==
LOC: RAD 14:26
PROVIDERS: PCP Family Medicine; Visit Provider Internal Medicine Pulmonary Disease
DX: R91.8 Other nonspecific abnormal finding of lung field (principal)
CPT/HCPCS: 71250

== ENCOUNTER 2025-03-19 12:42 | Outpatient (CLI) | payer MEDICARE, SELFPAY ==
--- OUTSIDE RECORDS SUMMARY | 2025-03-19 12:44 | XMS_ITS | Clinical Summary ---
Author Organization Healthcare Address [facility] [place] [address] Care Team Providers Care Senior [employer] Consultant Name Role Phone Unavailable Primary Care Provider Unavailabl e Social History Tobacco Use Types Packs/Day Years Used Date Smoking Tobacco: Never Assessed Sex and Gender Information Value Date Recorded Sex Assigned at Not on file Legal Sex Male 3:03 PM EDT Gender Identity Not on file Sexual Orientation Not on file Last Filed Vital Signs Vital Sign Reading Time Taken Comments Blood Pressure 124/62 02/26/2023 3:05 PM EDT Pulse 75 02/26/2023 3:05 PM EDT Temperature - - Respiratory Rate - - Oxygen Saturation - - Inhaled Oxygen Concentration - - Weight 47.6 kg (105 lb) 02/26/2023 3:05 PM EDT Height 180.3 cm (5' 11 ) 02/26/2023 3:05 PM EDT Body Mass Index 14.64 02/26/2023 3:05 PM EDT Plan of Treatment Health Maintenance Due Date Last Done Comments [facility]-Depression Screening 1945 [facility]-/Child/Adol SDOH Screenings 1945 [facility]- SDOH Screenings 1965 [facility]-Adult SDOH Screenings 1965 [facility]-DTaP,Tdap,and Td Vaccines (1 - Tdap) 1966 [facility]-Pneumococcal Vaccine: 50+ Years (1 of 1 - PCV) 1997 [facility]-Zoster Vaccines (1 of 2) 1997 [facility]-RSV Vaccine: 60+ Years or (1 - 1-dose 75+ series) 2022 [id number] Vaccine (3 - 2023- season) 2024 08/07/2021, 02/10/2021 [facility]-Influenza Vaccine (Season Ended) 2025 HPV Vaccines Aged Out No longer eligi ble based on patient's age to complete this topic [facility]-HIB Vaccines Aged Out No longer e ligible based on patient's age to complete this topic [facility]-Hepatitis A Vaccines Aged Out No longer eligible based on patient's age to complete this topic [facility]-IPV Vaccines Aged Out No longer e ligible based on patient's age to complete this topic [facility]-Rotavirus Vaccines Aged Out No lo nger eligible based on patient's age to complete this topic
--- NOTE | 2025-03-19 13:00 | CT_ITS ---
FINAL REPORT TECHNIQUE: Thin section axial images were obtained through the paranasal sinuses without contrast. Reconstruction images were obtained from the axial data. Exam was performed using dose reduction techniques such as automated exposure control, adjustment of the mA and kV according to patient size, and use of iterative reconstruction technique. CLINICAL HISTORY: Airway obstruction COMPARISON: None FINDINGS: The paranasal sinuses are clear. There is no air-fluid level or significant mucosal thickening. The maxillary infundibulum are patent bilaterally. There is mild right nasal septal deviation. There is no acute osseous abnormality. Remaining soft tissues are unremarkable. IMPRESSION: No evidence of acute sinusitis. Mild right nasal septal deviation. Reviewed, Interpreted and Dictated by Paola Kemp MD Transcribed by Anat Howard Authenticated and [facility]
== END 2025-03-19 23:59 | disposition home or self-care (01) ==
PROVIDERS: PCP Family Medicine; Visit Provider Nurse Practitioner
DX: J34.2 Deviated nasal septum (principal); J98.8 Other specified respiratory disorders
CPT/HCPCS: 70486

== ENCOUNTER 2025-06-10 10:40 | Outpatient (CLI) | payer MEDICARE, SELFPAY ==
--- OUTSIDE RECORDS SUMMARY | 2025-04-12 14:30 | XMS_ITS | Encounter Summary ---
Author Organization Healthcare Address [address] [id number] Care Team Providers Care Artificial Insemination Technician Name Role Phone Rigo Maza MD Primary Care Provider [phone] Reason for Referral * Imaging (Routine) - Closed Specialty Diagnoses / Procedures Referred By Maricarmen elmore Referred To Contact Radiology Diagnoses Chronic obstructive pulmonary disease, unspecified COPD type (CMS/HCC) History of MAC infection Procedures CT Chest wo IV Contrast Sumit Shipley APRN [address] [address] Phone: tel: fax: Referral ID Status Reason Start Date Expiration Date Visits Re quested Visits Authorized [id number] Closed 04/12/2025 10/12/2026 1 1 * Consultation (Routine) - Closed Specialty Diagnoses / Procedures Referred By Maricarmen elmore Referred To Contact Diagnoses Current smoker Chronic obstructive pulmonary disease, unspecified COPD type (CMS/HCC) History of MAC infection Sumit Shipley APRN [address] [address] Phone: tel: fax: Referral ID Status Reason Start Date Expiration Date Visits Re quested Visits Authorized [id number] Closed 04/12/2025 10/12/2026 1 1 Reason for Visit * Reason Comments Consult Airway obstruction, surgical clearance. * Consultation (Routine) - Closed Specialty Diagnoses / Procedures Referred By Maricarmen t Referred To Contact Pulmonology Diagnoses Airway obstruction System, Provider Not In, [place] [address] [facility] Medicine Specialties [address] [place] [address] Phone: tel: fax: Referral ID Status Reason Start Date Expiration Date V isits Requested Visits Authorized [id number] Closed Specialty Services Required 04/08/2025 10/08/2026 1 1 Encounter Details Date Type Department Care Team (Late st Contact Info) Description 04/12/2025 2:30 PM EDT Office Visit [facility] Medicine Specialties [address] [place] [address] Sumit Shipley, DRIVER LICENSE TECHNICIAN [address] [place] [address] Chronic obstructive pulmonary disease, unspecified COPD type (CMS/HCC) (Primary Dx); Current smoker; History of MAC infection; Multiple lung nodules; Irregular heart rate Social History Tobacco Use Types Packs/Day Years Used Date Smoking Tobacco: Every Day Cigarettes 1 60.7 Started: 1962 Smokeless Tobacco: Never Tobacco Cessation:Ready to Q uit: Not Asked; Counseling Given: Not Answered PHQ-2 Answer Date Recorded Patient Health Questionnaire-2 Score 2 04/12/2025 AUDIT-C Answer Date Recorded Q1: How often do you have a drink containing alc ohol? Never 04/12/2025 Average Number of Drinks Not on file 025 Q3: How often do you have si x or more drinks on one occasion? Never 04/12/2025 Sex and Gender Information Value Date Recorded Sex Assigned at Not on file Legal Sex Male 3:03 PM EDT Gender Identity Not on file Sexual Orientation Not on file documented as of this encounter Last Filed Vital Signs Vital Sign Reading Time Taken Comments Blood Pressure 103/70 04/12/2025 2:05 PM EDT Pulse 93 04/12/2025 2:05 PM EDT Temperature 36.7 C (98.1 F) 04/12/2025 2:05 PM EDT Respiratory Rate - - Oxygen Saturation 96% 04/12/2025 2:05 PM EDT 1 lpm Inhaled Oxygen Concentration - - Weight 45.3 kg (99 lb 13.9 oz) 04/12/2025 2:05 P M EDT Height 180.3 cm (5' 11 ) 04/12/2025 2:05 PM EDT Body Mass Index 13.93 04/12/2025 2:05 PM EDT documented in this encounter Functional Status * Over the past 2 weeks, how often have you been bothered by any of the following problems? Question Answer Date of Assessment Author Little interest or pleasure in doing things More than half the days 04/12/2025 2:13 PM EDT Golden Guzman Feeling down, depressed, or hopeless Not at all 04/12/2025 2:13 PM EDT Svitlana Guzman Patient Health Questionnaire-2 Score 2 04/12/2025 2:13 PM EDT Emelina Guzman documented as of this encounter Miscellaneous Notes * Progress Notes - Sumit Shipley, TAYLOR - 04/12/2025 2:30 PM EDT PULMONARY NEW PATIENT INITIAL VISIT Ric Forde is a 80 y.o. male who presents for initial consultation with a chief complaint of need for pulmonary surgical evaluation. Address: [address] [place] [address] Referring Provider: System, Provider Not In* Primary Care Provider: Rigo Maza MD HISTORY OF PRESENT ILLNESS PMHx includes COPD, MAC infection, lung nodules/mass, current smoker. Pulmonary history obtained from available outside pulm notes and imaging: December 2021: seen in outside pulmonary clinic for lung nodule eval, patient apparently left AMA refusing further evaluation 11/20/2022: CT chest showed new alveolar opacities in the anterolateral PUSHPA extending into the perihilar region with mild local volume loss. 12/30/2022: sputum positive for MAC. 02/15/2023: CT chest showed worsening PUSHPA consolidation with volume loss. Persistent cavitary area in the posterior left mid thorax with new fluid level. Partially improved other focal opacities. MAC treatment was initiated (azithromycin, ethambutol, rifampin). 04/19/2023: seen in outside pulmonary clinic and MAC treatment was continued (azithromycin, ethambutol, rifampin). 06/21/2023: seen in outside pulmonary clinic with improvement in cough and decrease in productive phlegm. Patient has quit smoking. Plan for repeat CT chest Aug 2023. 10/01/2023: patient called outside pulmonary clinic after home health nurse told him his medications were to treat TB. He did not return to clinic or get follow up testing. 11/13/2023: CT chest showed worsening consolidation and volume loss in PUSHPA. Further improvement in PUSHPA nodular opacity and slight improvement in the cavitary are in the left posterior midthorax. Stable LLL nodule. Needs surgical clearance for nasal septoplasty/turbinate reduction Patient reports he saw outside certification and selection specialist for around 9 months. He said all he wanted to do was treat him with pills. He was taking the pills as prescribed then his home health nurse told him thosemedications were for TB. He was very concerned and called his certification and selection specialist. Mr. Forde felt like hisdoctor could not explain the treatment plan well so he stopped taking his medication and never returned to pulmonary clinc. He was diagnosed with COPD many years ago at the [facility]. He is compliant with triple inhaler therapy (Symbicort and Spiriva). He uses albuterol every 4 hours, not really PRN. He does have CORONA. Cough and wheezing are only occasional, worse with humidity. Cough is usually productive of white mucous, never bloody. He bought his own oxygen concentrator and wears 1 lpm AAT and 2 lpm with exertion. He does not wear oxygen at night, denies night time symptoms. His last PFT was likely around [id number]. He continues to smoke 1 PPD, has been smoking for the past 60 years. He does not exacerbate frequently. Never been hospitalized for his breathing. Denies fever, chills, NS, lymphadenopathy. Denies AR. Denies GERD. Social/Exposure/Pertinent Pulmonary History: The patient was born full term and healthy. No history of childhood lung disease. COPD diagnosed many years ago. No known FH of lung disease. He lives in a mobile home with his and dog. No known mold or water damage. No down product use. No humidifier/sauna/hot tub/Jacuzzi use. 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 Past Medical History[1] Surgical History[2] Family History[3] Social History Socioeconomic History Marital status: Spouse name: Not on file Number of children: Not on file Years of education: Not on file Highest education level: Not on file Occupational History Not on file Tobacco Use Smoking status: Every Day Current packs/day: 1.00 Average packs/day: 1 pack/day for 60.5 years (60.5 ttl pk-yrs) Types: Cigarettes Start date: 1962 Smokeless tobacco: Never Vaping Use Vaping status: Never Used Substance and Sexual Activity Alcohol use: Not on file Drug use: Never Sexual activity: Not on file Other Topics Concern Not on file Social History Narrative Not on file Social Drivers of Health Financial Resource Strain: Not on file Food Insecurity: Not on file Transportation Needs: Not on file Physical Activity: Not on file Stress: Not on file Social Connections: Not on file Intimate Partner Violence: Not on file Housing Stability: Not on file Tobacco Use History[4] Allergies[5] Immunization History Administered Date(s) Administered [employer] COVID-19 Vaccine (Blue Cap) 18+ 02/10/2021, 08/07/2021 VACCINE / DOSE Flu Tetanus Pneumovax Shingles Current Medications[6] Tobacco Allergies Meds Problems Med Hx Surg Hx Fam Hx REVIEW OF SYSTEMS Review of Systems Constitutional: Negative for chills, diaphoresis and fever. Respiratory: Positive for cough, shortness of breath and wheezing. Allergic/Immunologic: Negative for environmental allergies. Hematological: Negative for adenopathy. Psychiatric/Behavioral: Negative for sleep disturbance. Assessment Scales: ACT: CAT: MMRC: Breathless Scale Grade 4: Too breathless to leave the house or breathless when dressing or undressing.: 4 PHYSICAL EXAMINATION Visit Vitals BP 103/70 (BP Location: Right arm, Patient Position: Sitting) Pulse 93 Temp 36.7 ??C (98.1 ??F) (Oral) Ht 1.803 m (5' 11 ) Wt 45.3 kg (99 lb 13.9 oz) SpO2 96% Comment: 1 lpm BMI 13.93 kg/m?? Physical Exam Vitals reviewed. Constitutional: General: He is not in acute distress. Appearance: Normal appearance. He is underweight. He is not ill-appearing. HENT: Head: Normocephalic. Eyes: Conjunctiva/sclera: Conjunctivae normal. Pupils: Pupils are equal, round, and reactive to light. Cardiovascular: Rate and Rhythm: Normal rate. Rhythm irregular. Pulmonary: Effort: Pulmonary effort is normal. No respiratory distress. Breath sounds: Decreased air movement present. Decreased breath sounds present. No wheezing, rhonchi or rales. Musculoskeletal: General: Normal range of motion. Cervical back: Normal range of motion. Skin: General: Skin is warm and dry. Coloration: Skin is not pale. Findings: No erythema or rash. Neurological: Mental Status: He is alert and oriented to person, place, and time. Psychiatric: Mood and Affect: Mood normal. Behavior: Behavior normal. Thought Content: Thought content normal. Judgment: Judgment normal. DATA Data Reviewed (personally by me this visit): Laboratory Studies: I personally reviewed recent lab work in EMR. Lab Results Component Value Date WBC 9.43 04/12/2025 HGB 13.7 04/12/2025 HCT 43.8 04/12/2025 MCV 95 04/12/2025 PLT 327 04/12/2025 04/12/2025: AEC 160 IgE pending Alpha 1 pending Radiology Results: I have personally reviewed the images in EMR. CT Chest (11/13/2023) images requested Worsening consolidation and volume loss in the left upper lobe, most likely inflammatory. Further improvement in the left upper lobe nodular opacity and slight improvement in the cavitary area in theleft posterior mid thorax. Other findings are stable. CT Chest (02/15/2023) images requested Worsening consolidation in the left upper lobe, most likely inflammatory/infectious. Partially improved other previously identified focal opacities. Worsening fluid and a posterior left lung cavity, most likely inflammatory. CT Chest (11/20/2022) images requested Severe panlobular emphysematous changes involving the mid and upper lung broussard most severely. New alveolar opacities in the anterolateral left upper lobe extending into the perihilar region with mild local volume loss. New bandlike alveolar density with consolidative components in the lateral right. Pulmonary Function Testing: I have personally reviewed and interpreted these values. (Ordered) Multi-Ox: (04/12/2025) Oxygen Saturation Test Pulse Oximetry at rest: Resting SpO2 (minimum): 97 % Resting HR (max): 88 Resting Oxygen Device: None Resting O2 Flow (liters per minute): 0 Pulse Oximetry during ambulation: Ambulation SpO2 (minimum): 93 % Ambulation HR (max): 104 Ambulation Oxygen Device: None Ambulation Oxygen Flow (liters per minute): 0 Pulse Oximetry during recovery from ambulation: Minutes required to return to resting level: 1 Recovery SpO2: 98 % Recovery HR: 96 Recovery Oxygen Device: None Recovery Oxygen Flow (liters per minute): 0 IMPRESSION 1. Chronic obstructive pulmonary disease, unspecified COPD type (CMS/HCC) 2. Current smoker 3. History of MAC infection 4. Multiple lung nodules 5. Irregular heart rate Orders Placed This Encounter Procedures CT Chest wo IV Contrast Standing Status: Future Expected Date: 05/13/2025 Expiration Date: 10/14/2026 Specific protocol needed?: Radiology to determine What is the patient's sedation requirement?: No Sedation Results Release Delay - 72 Hours: 72 Hours CBC and differential Standing Status: Future Number of Occurrences: 1 Expected Date: 04/12/2025 Expiration Date: 10/14/2026 Release to patient in MyChart: Immediate [1] IgE Standing Status: Future Number of Occurrences: 1 Expected Date: 04/12/2025 Expiration Date: 10/14/2026 Release to patient in MyChart: Immediate [1] [id number] Enzyme Conc and Phenotype (SO) Standing Status: Future Number of Occurrences: 1 Expected Date: 04/12/2025 Expiration Date: 10/13/2026 Release to patient in [facility]: Immediate [1] Follow Up Pulm CT and PFTs same day as follow up, he will need transport assistance arranged Standing Status: Future Expected Date: 05/10/2025 Expiration Date: 05/13/2026 Referral Priority: Routine Referral Type: Consultation Number of Visits Requested: 1 Sputum induction Standing Status: Future Expiration Date: 10/14/2026 ECG Adult (Performed in Heart Station) Standing Status: Future Number of Occurrences: 1 Expected Date: 04/12/2025 Expiration Date: 10/14/2026 Reason for Exam:: irregular HR Multiple Determination Oximetry Standing Status: Future Expected Date: 04/12/2025 Expiration Date: 10/14/2026 Where will this be performed?: PFT Lab Pulmonary function test Standing Status: Future Expected Date: 05/13/2025 Expiration Date: 10/14/2026 Reason for Exam:: PFTs Which PFTs would you like to perform?: Full PFT (Spirometry, Lung Volumes and Diffusion Capacity) Type of spirometry:: Pre and post bronchodilator Where will this be performed?: PFT Lab DISCUSSION/SUMMARY Ric Forde is a pleasant 80 y.o. male who presented today for initial consultation. He was referred by outside ENT for surgical clearance for nasal septoplasty/turbinate reduction. Patient has significant pulmonary history but has not been following with pulmonary so he was referred here. COPD Current smoker -- Has not had PFTs in about 15 years so full PFTs ordered today -- Currently on triple inhaler therapy with Symbicort and Spiriva, would continue this -- Does not exacerbate frequently and has never been hospitalized for a respiratory illness -- He bought his own portable oxygen concentrator and wears 1 lpm AAT and 2 lpm with exertion -- Multi ox performed in office today showed no significant desaturation therefore no indication for oxygen, advised patient of this -- He is a current smoker of 1 PPD (60 pack year history), cessation strongly advised -- Would recommend PCV 20 and pulmonary rehab, can discuss next visit -- He does qualify for LDCT LCS until age 82, CT chest ordered today -- CBC w/diff, IgE, and alpha 1 pending History of MAC infection Lung nodules -- It seems his lung nodules were first noted in 2021, he refused treatment/evaluation at that time -- In 2022 sputum cultures were +MAC and his imaging showed multifocal consolidations/cavitations so treatment with azithromycin, ethambutol, and rifampin was started -- He reports compliance with antibiotics x 9 months but stopped in Sep 2023 and never returned to his certification and selection specialist -- Last CT was in Oct 2023 which showed worsening consolidation/volume loss in PUSHPA but further improvement in nodule opacities and and cavitations -- Cough is not bothersome and is productive of white phlem -- Induced sputum attempted today in office for respiratory cultures including AFB, he was not ableto produce -- CT chest ordered today, will obtain OSH imaging for comparison Irregular HR -- Noted on exam today -- ECG ordered which showed sinus rhythm with marked sinus arrhythmia as well as anterolateral infarct, age undetermined -- Referral placed to Cardiology, can refer to local cardiology if patient prefers Pulmonary Health Maintenance: Pneumonia Vaccination: recommend Influenza Vaccination: recommend COVID Vaccination: recommend RSV Vaccination: recommend LDCT Lung Cancer Screening: recommend I will follow-up with the patient in 1 month, or sooner if needed. The patient was agreeable to theabove plan, and all questions were answered accordingly. I spent 49 minutes performing all or some of the following: Reviewing the history, performing an examination and evaluation, entering clinical information into the EHR, interpreting the results, counseling family/patient/caregiver, reviewing x-rays and laboratories, ordering medications, tests and procedures, referring and communicating with consulting health transitional care liaison and care coordination. Parts of this note may have been dictated using [employer] voice recognition software. As a result, errors may occur. When identified, these administrative fellow errors are corrected, but while every attempt is made to prevent/correct these, errors may still exist. Sumit Shipley APRN [facility] Pulmonary [facility] Phone number: [phone] Fax number: [phone] Note to patient: The Century C[employer] Act makes medical notes like these available to patients inthe interest of transparency. However, be advised this is a medical document. It is intended as peer to peer communication. It is written in medical language and may contain abbreviations or verbiagethat are unfamiliar. It may appear blunt or direct. Medical documents are intended to carry relevant information, facts as evident, and the clinical opinion of the practitioner. [1] Past Medical History: Diagnosis Date COPD (chronic obstructive pulmonary disease) ([facility]) [2] Past Surgical History: Procedure Laterality Date CATARACT EXTRACTION TOTAL HIP ARTHROPLASTY Left 2001 [3] History reviewed. No pertinent family history. [4] Social History Tobacco Use Smoking Status Every Day Current packs/day: 1.00 Average packs/day: 1 pack/day for 60.5 years (60.5 ttl pk-yrs) Types: Cigarettes Start date: 1962 Smokeless Tobacco Never [5] Allergies Allergen Reactions Penicillins Unknown - Patient states they do not know rxn details Was told this by [6] Current Outpatient Medications: albuterol 108 (90 Base) MCG/ACT inhaler, Inhale 2 puffs every 4 hours as needed for wheezing., Disp: , Rfl: budesonide-formoterol (Symbicort) 160-4.5 MCG/ACT inhaler, Inhale 2 puffs 2 times a day., Disp: , Rfl: fluticasone (Flonase) 50 MCG/ACT nasal spray, instill 1 spray into each nostril 2 times a day, Disp: , Rfl: Spiriva Respimat 2.5 MCG/ACT inhaler, inhale 2 puffs by mouth once a day, Disp: , Rfl: No current facility-administered medications for this visit. documented in this encounter Plan of Treatment Upcoming Encounters Date Type Department Care Team (Late st Contact Info) Description 06/21/2025 11:00 AM EDT Consult [facility] Otolaryngology [address] [place] [id number] Javier Dhillon MD [address] [place] [id number] 08/10/2025 10:00 AM EST Office Visit [facility] Medicine Specialties [address] [place] [phone] Sumit Shipley APRN [address] [place] [address] Scheduled Orders Name Type Priority Associated Diagnoses Order Schedule Multiple Determination Oximetry PFT Routine Chronic obstructive pulmonary disease, unspecified COPD type (CMS/HCC) Expected: 04/12/2025, Expires: 10/14/2026 Sputum induction Respiratory Care Routine History of MAC infection 1 Occurrences starting 04/12/2025 until 10/14/2026 Scheduled Referrals Name Type Priority Associated Diagnoses Orde r Schedule Follow Up Pulm Outpatient Referral Routine Current smoker Chronic obstructive pulmonary disease, unspecified COPD type (CMS/HCC) History of MAC infection Expected: 05/10/2025, Expires: 05/13/2026 documented as of this encounter Results * (ABNORMAL) Pulmonary function test (05/10/2025 3:30 PM EDT) [id number] 1.38(A) 2.96 - 5.23 L VYAIRE PFT FVC PRED 4.08 VYAIRE PFT FVC LLN 2.96 VYAIRE PFT FVCPREZSCORE -4.02 VYAIRE PFT FVCPRE%PRED 34 % % VYAIRE PFT FVC PREDAUT US_Quanjer GLI (2011) VYAIRE PFT FVC Z-SCORE -4.02 VYAIRE PFT FEV1 PRE 0.50(A) 2.11 - 3.87 L VYAIRE PFT FEV1 PRED 3.02 VYAIRE PFT FEV1 LLN 2.11 VYAIRE PFT [id number] -4.05 VYAIRE PFT FEV1_Pre%Pred 16 % % VYAIRE PFT FEV1 PREDAUTH US_[facility] GLI (2011) VYAIRE PFT FEV1 Z-SCORE -4.05 VYAIRE PFT FEV1/FVC PRE 36.07(A) 60.18 - 87.76 % VYAIRE PFT EMT7BZWIXJV 75 VYAIRE PFT LNF6GESVOK 60 VYAIRE PFT HYG7QHKMEDTMNBDD -3.91 VYAIRE PFT WEK4FRJXGH%PRED 48 % % VYAIRE PFT PUA4SSFITRTM US_[facility] GLI (2011) VYAIRE PFT XAB6OZFPTTODP -4 VYAIRE PFT EFJ46-12% PRE 0.23(A) 0.83 - 4.06 L/s VYAIRE PFT XAE46-93%_Pred 2.14 VYAIRE PFT PCH9116%LLN 0.83 VYAIRE PFT QPM0122%PREZSCORE -2.95 VYAIRE PFT XWS5852%PRE%PRED 11 % % VYAIRE PFT EYJ8878%[facility] GLI (2011) VYAIRE PFT PEF PRE 0.92(A) 5.32 - 10.09 L/s VYAIRE PFT PEF PRED 7.71 VYAIRE PFT PEF LLN 5.32 VYAIRE PFT PEFPREZSCORE -4.69 VYAIRE PFT PEFPRE%PRED 12 % % VYAIRE PFT PEF [facility] (1998) VYAIRE PFT FDPYKFTLZDGMSGNO2PDN 3.92(A) 18.35 - 33.69 ml/(min* mmHg) VYAIRE PFT DLCOSINGLEBREATH PRED 25.32 VYAIRE PFT DLCOSINGLEBREATH LLN 18.35 VYAIRE PFT DLCOSINGLEBREATH Z-SCORE -7.19 VYAIRE PFT DLCOSINGLEBREATH % PRED 15.5 % VYAIRE PFT DLCOSINGLEBREATH [facility]CO GLI (2019) VYAIRE PFT DLCOSINGLEBREATH Z-SCORE -7.19 05/10/2025 3:26 PM EDT VYAIRE PFT ZQRPJDYTQGRSRXGEL2DU E 3.92(A) 18.35 - 33.69 ml/(min* mmHg) VYAIRE PFT DLCOCSINGLEBREATH PRED 25.32 VYAIRE PFT DLCOCSINGLEBREATH LLN 18.35 VYAIRE PFT DLCOCSINGLEBREATH Z-SCORE -7.19 VYAIRE PFT DLCOCSINGLEBREATH % PRED 15.5 % VYAIRE PFT DLCOCSINGLEBREATH PREDPark [facility] TLCO GLI (2019) VYAIRE PFT YMIERG5CER 0.94(A) 2.83 - 5.03 ml/(min* mmHg*L) VYAIRE PFT DLCOVAPRED 3.88 VYAIRE PFT DLCOVALLN 2.83 VYAIRE PFT DLCOVAZSCORE -5.29 VYAIRE PFT DLCOVA%PRED 24.3 % VYAIRE PFT DLCOVAPREDAUT Stanojevic TLCO GLI (2019) VYAIRE PFT DLCOVAZSCORE -5.29 05/10/2025 3:26 PM EDT VYAIRE PFT DIHUGKXPQ4LSH 0.94(A) 2.83 - 5.03 ml/(min* mmHg*L) VYAIRE PFT DLCOC SB/VA PRED 3.88 VYAIRE PFT DLCOC SB/VA LLN 2.83 VYAIRE PFT DLCOC SB/VA Z-SCORE -5.29 VYAIRE PFT DLCOC SB/VA % PRED 24.3 % VYAIRE PFT DLCOC SB/[facility] Stanojevic TLCO GLI (2019) VYAIRE PFT DLCOC SB/VA Z-SCORE -5.29 05/10 3:26 PM EDT VYAIRE PFT LDRCRWJDXDGNMW9IWX 4.16(A) 5.26 - 7.95 L VYAIRE PFT VASINGLEBREATH PRED 6.55 VYAIRE PFT VASINGLEBREATH LLN 5.26 VYAIRE PFT VASINGLEBREATH Z-SCORE -3.17 VYAIRE PFT VASINGLEBREATH % PRED 63.5 % VYAIRE PFT VASINGLEBREATH PR[facility] Stanojevic TLCO GLI (2019) VYAIRE PFT VASINGLEBREATH Z-SCORE -3.17 05/10/2025 3:26 PM EDT VYAIRE PFT DEYZMQULSKJAPAX6QQG 1.89(A) 2.96 - 5.23 L VYAIRE PFT IVCSINGLEBREATH PRED 4.08 VYAIRE PFT IVCSINGLEBREATH LLN 2.96 VYAIRE PFT IVCSINGLEBREATH Z-SCORE -3.24 VYAIRE PFT IVCSINGLEBREATH % PRED 46.3 % VYAIRE PFT IVCSINGLEBREATH PREDST[facility]jer GLI (2011) VYAIRE PFT CHARLIE% VCMAX PRE 100.00 % VYAIRE PFT TLC SB PRE 4.26(A) 5.70 - 8.95 L VYAIRE PFT TLCSINGLEBREATH PRED 7.32 VYAIRE PFT TLCSINGLEBREATH LLN 5.70 VYAIRE PFT TLCSINGLEBREATH Z-SCORE -3.15 VYAIRE PFT TLCSINGLEBREATH % PRED 58.2 % VYAIRE PFT TLCSINGLEBREATH PREDAUTAv[facility] Lung volumes GLI (2019)__ VYAIRE PFT HB PRE 14.60 g(Hb)/dL VYAIRE PFT CZW6DKR 8.53 5.70 - 8.95 L VYAIRE PFT TLCPRED 7.32 VYAIRE PFT TLCLLN 5.70 VYAIRE PFT TLCULN 8.95 VYAIRE PFT TLCZSCORE 1.22 VYAIRE PFT TLC%PRED 116.6 % [facility]AIRE PFT TLCPREDC[facility] Lung volumes GLI (2019)__ VYAIRE PFT VC0PRE 1.68(A) 2.96 - 5.23 L VYAIRE PFT VCPRED 4.08 VYAIRE PFT VCLLN 2.96 VYAIRE PFT VCULN 5.23 VYAIRE PFT VCZSCORE -3.55 VYAIRE PFT VC%PRED 41.2 % VYAIRE PFT VCPREDAUTREHAB[facility] GLI (2011) VYAIRE PFT IC0PRE 0.83(A) 2.08 - 3.90 L VYAIRE PFT ICPRED 3.01 VYAIRE PFT ICLLN 2.08 VYAIRE PFT ICULN 3.90 VYAIRE PFT IC Z-SCORE -3.68 VYAIRE PFT IC%PRED 27.6 % VYAIRE PFT ICPREDAUT [facility] Lung volumes GLI (2019)__ VYAIRE PFT [id number] 7.69(A) 2.92 - 5.74 L VYAIRE PFT FRCPLETH PRED 4.17 VYAIRE PFT FRCPLETH LLN 2.92 VYAIRE PFT FRCPLETH ULN 5.74 VYAIRE PFT FRCPLETH Z-SCORE 3.32 VYAIRE PFT FRCPLETH % PRED 184.5 % VYAIRE PFT FRCPLETH PREDAUTH [facility] Lung volumes GLI (2019)__ VYAIRE PFT [id number] 0.85 0.36 - 2.72 L VYAIRE PFT ERVPRED 1.30 VYAIRE PFT ERVLLN 0.36 VYAIRE PFT ERVULN 2.72 VYAIRE PFT ERV Z-SCORE -0.67 VYAIRE PFT ERV%PRED 65.7 % VYAIRE PFT ERVPREDAUTH [facility] Lung volumes GLI (2019)__ VYAIRE PFT RV0PRE 6.84(A) 1.58 - 4.38 L VYAIRE PFT RVPRED 2.84 VYAIRE PFT RVLLN 1.58 VYAIRE PFT RVULN 4.38 VYAIRE PFT RVZSCORE 3.84 VYAIRE PFT RV%PRED 240.8 % VYAIRE PFT RVPREDAUTH [facility] Lung volumes GLI (2019)__ VYAIRE PFT RV%TJM8TYS 80.25(A) 26.62 - 53.39 % VYAIRE PFT RV%TLCPRED 40 VYAIRE PFT RV%TLCLLN 27 VYAIRE PFT RV%TLCULN 53 VYAIRE PFT RV%TLCZSCORE 4.72 VYAIRE PFT RV%TLC%PRED 202.2 % VYAIRE PFT RV%TLCPREDAUTH [facility] Lung volumes GLI (2019)__ VYAIRE PFT Anatomical Region Laterality Modality PFT 05/10/2025 3:08 PM EDT Narrative 05/10/2025 7:18 PM EDT Pulmonary Function Testing Report Ric Forde underwent pulmonary function testing today at the [facility]. The patient underwent spirometry, lung volumes by body plethysmography, and diffusion capacity testing. All tests were appropriately administered via ATS/ERS criteria. All tests are acceptable and interpretable unless noted otherwise. Spirometry: Reduced FEV1 and reduced FVC and reduced ratio consistent with severe obstruction. A concomitant restrictive process is excluded by normal TLC on plethysmography. Lung Volumes: Elevated RV/TLC which is suggestive of air trapping. Diffusion Capacity: Diffusion capacity uncorrected for Hb is severely reduced. A reduced DLCO with a low VA and low/normal KCO is a pattern that may suggest loss of alveolar capillary structure with loss of lung volume in conditions such as emphysema and ILD. Trend: There are no prior studies for comparison. us Sumit Shipley APRN PFT ORDERABLES Final Res ult * CT Chest wo IV Contrast (05/10/2025 2:31 PM EDT) Anatomical Region Laterality Modality Chest Computed Tomogra phy Impressions 05/10/2025 3:08 PM EDT No acute pulmonary process. Severe emphysema with sequela of chronic infectious process within the left upper lung, likely representing prior fungal infection or atypical infectious process. CRITICAL RESULT: No. COMMUNICATION: Per this written report. Drafted by Greg Melgar MD on 05/10/2025 2:53 PM Final report signed by Greg Melgar MD on 05/10/2025 3:08 PM Narrative 05/10/2025 3:08 PM EDT CLINICAL INDICATION: Cough, chronic/persisting > 8 weeks, failed empiric treatment TECHNIQUE: Multiple CT helical images were obtained from thoracic inlet through upper abdomen without administration of IV contrast. The imaging protocol used in this examination was optimized to achieve diagnostic quality with the lowest possible radiation dose in accordance with the principles of ALARA (As Low As Reasonably Achievable). COMPARISON: Outside CT scan November 13, 2023 FINDINGS: Mediastinum and Pleura: The heart is normal in size. Mild calcified coronary artery disease. 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 Lack of intravenous contrast limits evaluation of the minna. Lungs: Severe underlying changes of emphysema. There is thick-walled cystic changes involving the left lung apex with associated bronchiectasis, likely representing prior superimposed atypical infection. Mild volume loss. Minimal scarring within the right middle lobe as well. No focal airspace consolidation or suspicious pulmonary nodule Upper Abdomen: No suspicious lesions in the partially visualized upper abdomen. Musculoskeletal: No suspicious lytic or sclerotic lesion. Procedure Note Greg Melgar MD - 05/10/2025 CLINICAL INDICATION: Cough, chronic/persisting > 8 weeks, failed empiric treatment TECHNIQUE: Multiple CT helical images were obtained from thoracic inlet through upperabdomen without administration of IV contrast. The imaging protocol used in this examination was optimized to achievediagnostic quality with the lowest possible radiation dose in accordancewith the principles of ALARA (As Low As Reasonably Achievable). COMPARISON: Outside CT scan November 13, 2023 FINDINGS: Mediastinum and Pleura: The heart is normal in size. Mild calcifiedcoronary artery disease. Ascending aorta is aneurysmal at 4.1 cm indiameter. Lack of intravenous contrast limits evaluation of the minna. Lungs: Severe underlying changes of emphysema. There is thick-walledcystic changes involving the left lung apex with associatedbronchiectasis, likely representing prior superimposed atypical infection.Mild volume loss. Minimal scarring within the right middle lobe as well.No focal airspace consolidation or suspicious pulmonary nodule Upper Abdomen: No suspicious lesions in the partially visualized upperabdomen. Musculoskeletal: No suspicious lytic or sclerotic lesion. IMPRESSION: No acute pulmonary process. Severe emphysema with sequela of chronic infectious process within theleft upper lung, likely representing prior fungal infection or atypicalinfectious process. CRITICAL RESULT: No. COMMUNICATION: Per this written report. Drafted by Greg Melgar MD on 05/10/2025 2:53 PM Final report signed by Greg Melgar MD on 05/10/2025 3:08 PM Sumit Shipley APRN IMG CT PROCEDURES Final R esult * (ABNORMAL) [id number] Enzyme Conc and Phenotype (SO) (04/12/2025 4:45 PM EDT) ALPHA 1 ANTITRYPSIN 230(H) 90 - 200 mg/dL 04/16/2025 11:12 PM EDT [facility] ([employer]) A1A Phenotype M1M1 04/16/2025 11:12 PM EDT [facility] ([employer]) Blood Venous blood specimen / Unknown Venipuncture / Unknown 04/12/2025 4:45 PM EDT 04/12/2025 4:45 PM EDT Narrative [facility] ([employer]) - 04/16/2025 11:12 PM EDT To convert to umol/L, multiply mg/dL by 0.185 The patient appears to have a normal phenotype. All M alleles (including subtypes M1, M2, and M3) produce normal serum concentrations of fdbho-7-gmjcuoze inhibitor and are not associated with clinical disease. Caution in interpretation is advised if the patient has been transfused within the previous 21 days. Performed By: [facility] [address] [place] [address] Cigarette Making Examiner: Lamonte Linn MD, PhD CLIA Number: [id number] Grajose davide D Sharp DRIVER LICENSE TECHNICIAN LAB BLOOD ORDERABLES Inga l Result Performing Organization Address [facility] [place] [address] * IgE (04/12/2025 4:45 PM EDT) [facility] Immunoglobulin E 34 <=214 kU/L 04/16/20 25 5:11 AM EDT [facility] [employer] LUIGI) Blood Venous blood specimen / Unknown Venipuncture / Unknown 04/12/2025 4:45 PM EDT 04/12/2025 4:45 PM EDT Narrative [facility]) - 04/16/2025 5:11 AM EDT REFERENCE INTERVAL: Immunoglobulin E, Serum Access complete set of age- and/or gender-specific reference intervals for this test in the [facility] Test Directory ([employer]). Performed By: [facility] [address] [place] [address] Cigarette Making Examiner: Lamonte Linn MD, PhD CLIA Number: [id number] Sumit Mcknight Sharp DRIVER LICENSE TECHNICIAN LAB BLOOD ORDERABLES Inga l Result Performing Organization Address [facility] Co de Phone Number [place] [address] * (ABNORMAL) CBC and differential (04/12/2025 4:45 PM EDT) [facility] WBC Count 9.43 3.70 - 10.30 10*3/uL LAB HEMATOLOGY METHOD 04/12/2025 6:14 PM EDT [facility] RBC Count 4.60 4.60 - 6.10 10*6/uL LAB HEMATOLOGY METHOD 04/12/2025 6:14 PM EDT [facility] HGB 13.7 13.7 - 17.5 g/dL LAB HEMATOLOGY METHOD 04/12/2025 6:14 PM EDT [facility] HCT 43.8 40.0 - 51.0 % LAB HEMATOLOGY METHOD 04/12/2025 6:14 PM EDT [facility] Platelet Count 327 155 - 369 10*3/uL LAB HEMATOLOGY METHOD 04/12/2025 6:14 PM EDT [facility] MCV 95 79 - 98 fL LAB HEMATOLOGY METHOD 04/12/2025 6:14 PM EDT [facility] MCH 29.8 26.0 - 32.0 pg LAB HEMATOLOGY METHOD 04/12/2025 6:14 PM EDT [facility] MCHC 31.3 30.7 - 35.5 g/dL LAB HEMATOLOGY METHOD 04/12/2025 6:14 PM EDT [facility] RDW 12.6 11.5 - 14.5 % LAB HEMATOLOGY METHOD 04/12/2025 6:14 PM EDT [facility] MPV 10.6 8.8 - 12.5 fL LAB HEMATOLOGY METHOD 04/12/2025 6:14 PM EDT [facility] nRBC 0.0 <=0.0 per 100 WBCs LAB HEMATOLOGY METHOD 04/12/2025 6:14 PM EDT [facility] Differential Type Automated LAB HEMATOLOGY METHOD 04/12/2025 6:14 PM EDT [facility] Neutrophils % 82 % LAB HEMATOLOGY METHOD 04/12/2025 6:14 PM EDT [facility] Lymphocytes % 8 % LAB HEMATOLOGY METHOD 04/12/2025 6:14 PM EDT [facility] Monocytes % 7 % LAB HEMATOLOGY METHOD 04/12/2025 6:14 PM EDT [facility] Eosinophils % 2 % LAB HEMATOLOGY METHOD 04/12/2025 6:14 PM EDT [facility] Basophils % 1 % LAB HEMATOLOGY METHOD 04/12/2025 6:14 PM EDT [facility] Immature Granulocytes % 0 % LAB HEMATOLOGY METHOD 04/12/2025 6:14 PM EDT [facility] Neutrophils Absolute 7.86(H) 1.60 - 6.10 10*3/uL LAB HEMATOLOGY METHOD 04/12/2025 6:14 PM EDT [facility] Lymphocytes Absolute 0.71(L) 1.20 - 3.90 10*3/uL LAB HEMATOLOGY METHOD 04/12/2025 6:14 PM EDT [facility] Monocytes Absolute 0.62 0.30 - 0.90 10*3/uL LAB HEMATOLOGY METHOD 04/12/2025 6:14 PM EDT [facility] Eosinophils Absolute 0.16 0.00 - 0.50 10*3/uL LAB HEMATOLOGY METHOD 04/12/2025 6:14 PM EDT [facility] Basophils Absolute 0.05 0.00 - 0.10 10*3/uL LAB HEMATOLOGY METHOD 04/12/2025 6:14 PM EDT [facility] Immature Granulocytes Absolute 0.03 0.00 - 0.06 10*3/uL LAB HEMATOLOGY METHOD 04/12/2025 6:14 PM EDT [facility] Blood Venous blood specimen / Unknown Venipuncture / Unknown 04/12/2025 4:45 PM EDT 04/12/2025 4:45 PM EDT Narrative [facility] - 04/12/2025 6:14 PM EDT Therapeutic decision making should be based on absolute values, rather than percentages. us Sumit Shipley APRN LAB BLOOD ORDERABLES Inga l Result [facility] [address] [place] [address] * ECG Adult (Performed in Heart Station) (04/12/2025 4:11 PM EDT) EKG DIAGNOSIS CLASS Abnormal MUSE ECG Ventricular Rate 89 BPM MUSE ECG Atrial Rate 89 BPM MUSE ECG NH Interval 170 ms MUSE ECG QRSD Interval 72 ms MUSE ECG QT Interval 354 ms MUSE ECG QTC Interval 430 ms MUSE ECG P [place] 89 degrees MUSE ECG R [place] 85 degrees MUSE ECG T Wave [place] 80 degrees MUSE ECG Diagnosis Sinus rhythm with marked sinus arrhythmia MUSE ECG Diagnosis Anterolateral infarct , age undetermined MUSE ECG Diagnosis Abnormal ECG MUSE ECG Diagnosis MUSE ECG Diagnosis Confirmed by Jerod Kat ([id number]) on 04/12/2025 5:32:25 PM MUSE ECG 04/12/2025 4:11 PM EDT 04/12/2025 5:32 PM EDT us Rohinijamesshivani Shipley DRIVER LICENSE TECHNICIAN ECG ORDERABLES Final Res ult MUSE ECG documented in this encounter Visit Diagnoses Diagnosis Chronic obstructive pulmonary disease, unspecified COPD type (CMS/HCC)- Primary Current smoker History of MAC infection Multiple lung nodules Other diseases of lung, not elsewhere classified Irregular heart rate Chronic obstructive pulmonary disease, unspecified COPD type (CMS/HCC) History of MAC infection Chronic obstructive pulmonary disease, unspecified COPD type (CMS/HCC) documented in this encounter Administered Medications Inactive Administered Medications - up to 3 most recent administrations Medication Order MAR Action Action Date Dose Rate Site sodium chloride 7 % nebulizer solution 4 mL 4 mL, Nebulization, Once as needed, 1 dose, Starting on Sat04/12/25 at 1515, Until Sat04/12/25 at 1516, Routine, mucolysisIndications:History of MAC infection Given 04/12/2025 3:16 PM EDT 4 mL documented in this encounter Additional Health Concerns Assessment Noted Time A fall risk assessment has been complete d for the patient 04/12/2025 2:13 PM EDT A Body Mass Index follow-up plan has been documented for the patient 04/12/2025 3:26 PM EDT documented as of this encounter Care Teams Artificial Insemination Technician Relationship Specialty Start Date End Date Rigo Maza MD [address] [place] [address] [place] [address] PCP - General 04/09/25 documented as of this encounter
--- OUTSIDE RECORDS SUMMARY | 2025-04-12 15:45 | XMS_ITS | Encounter Summary ---
Author Organization Healthcare Address [address] [place] [address] Care Team Providers Care Casing Sewer Name Role Phone Rigo Maza MD Primary Care Provider [phone] Encounter Details Date Type Department Care Team (Latest Contact Info) Description 04/12/2025 3:45 PM EDT - 04/12/2025 11:59 PM EDT Hospital Encounter Cardiac Imaging [address] [place] [address] Irregular heart rate Discharge Disposition: Home or Self Care Social History Tobacco Use Types Packs/Day Years Used Date Smoking Tobacco: Every Day Cigarettes 1 60.7 Started: 1962 Smokeless Tobacco: Never PHQ-2 Answer Date Recorded Patient Health Questionnaire-2 [...] on file documented as of this encounter Functional Status * Over the [...] Emelina Guzman documented as of this encounter Medications at Time of Discharge fluticasone (Flonase) 50 MCG/ACT nasal spray instill 1 spray into each nostril 2 times a day 03/11/2025 albuterol 108 (90 Base) MCG/ACT inhaler Inhale 2 puffs every 4 hours as needed for wheezing. 05/10/2025 budesonide-formot len (Symbicort) 160-4.5 MCG/ACT inhaler Inhale 2 puffs 2 times a day. 11/26/2022 05/10/2025 Spiriva Respimat 2.5 MCG/ACT inhaler inhale 2 puffs by mouth once a day 05/10/2025 documented as of this encounter Plan of Treatment Upcoming Encounters Date Type Department Care Team (Late st Contact Info) Description 06/21/2025 11:00 AM EDT Consult [facility] Otolaryngology [address] [place] [address] Javier Dhillon MD [address] [place] [phone] 08/10/2025 10:00 AM EST Office Visit [facility] Medicine Specialties [address] [place] [id number] Sumit Shipley, TAYLOR [address] [place] [address] documented as of this encounter Procedures Procedure Name Priority Date/Time Associated Diagnosis Comments ECG ADULT Routine 04/12/2025 4:11 PM EDT Irregular heart rate documented in this encounter Results * ECG Adult (Performed in Heart Station) (04/12/2025 4:11 PM EDT) EKG DIAGNOSIS CLASS Abnormal MUSE ECG Ventricular Rate 89 BPM MUSE ECG Atrial Rate 89 BPM MUSE ECG VA Interval 170 ms MUSE ECG QRSD Interval 72 ms MUSE ECG QT Interval 354 ms MUSE ECG QTC Interval 430 ms MUSE ECG P [place] 89 degrees MUSE ECG R [place] 85 degrees MUSE ECG T Wave [place] 80 degrees MUSE ECG Diagnosis Sinus rhythm with marked sinus arrhythmia MUSE ECG Diagnosis Anterolateral infarct , age undetermined MUSE ECG Diagnosis Abnormal ECG MUSE ECG Diagnosis MUSE ECG Diagnosis Confirmed by Jerod Kat ([id number]) on 04/12/2025 5:32:25 PM MUSE ECG 04/12/2025 4:11 PM EDT 04/12/2025 5:32 PM EDT us Sumit Shipley APRN ECG ORDERABLES Final Res ult MUSE ECG documented in this encounter Visit Diagnoses Diagnosis Irregular heart rate documented in this encounter Additional Health Concerns Assessment Noted Time A fall risk assessment has been complete d for the patient 04/12/2025 2:13 PM EDT A Body Mass Index follow-up plan has been documented for the patient 04/12/2025 3:26 PM EDT documented as of this encounter Care Teams Casing Sewer Relationship Specialty Start Date End Date Rigo Maza MD [address] [facility] [place] [address] PCP - General 04/09/25 documented as of this encounter
--- OUTSIDE RECORDS SUMMARY | 2025-05-10 13:22 | XMS_ITS | Encounter Summary ---
Author Organization Healthcare Address [address] [place] [address] Care Team Providers Care Fruit Buying Grader Name Role Phone Rigo Maza MD Primary Care Provider [phone] Reason for Referral * Imaging (Routine) - Closed Specialty Diagnoses / Procedures Referred By Maricarmen elmore Referred To Contact Radiology Diagnoses Chronic obstructive pulmonary disease, unspecified COPD type (CMS/HCC) History of MAC infection Procedures CT Chest wo IV Contrast Sumit Shipley APRN [address] [address] Phone: tel: fax: Referral ID Status Reason Start Date Expiration Date Visits Re quested Visits Authorized [id number] Closed 04/12/2025 10/12/2026 1 1 Reason for Visit * Imaging (Routine) - Closed Specialty Diagnoses / Procedures Referred By Maricarmen elmore Referred To Contact Radiology Diagnoses Chronic obstructive pulmonary disease, unspecified COPD type (CMS/HCC) History of MAC infection Procedures CT Chest wo IV Contrast Sumit Shipley, PASSENGER ATTENDANT [address] [address] Phone: tel: fax: Referral ID Status Reason Start Date Expiration Date Visits Re quested Visits Authorized [id number] Closed 04/12/2025 10/12/2026 1 1 Encounter Details Date Type Department Care Team (Latest Contact Info) Description 05/10/2025 1:22 PM EDT - 05/10/2025 11:59 PM EDT Hospital Encounter [facility] [address] [place] [address] Chronic obstructive pulmonary disease, unspecified COPD type (CMS/HCC); History of MAC infection Discharge Disposition: Home or Self Care Social History Tobacco Use Types Packs/Day Years Used Date Smoking Tobacco: Every Day Cigarettes 1 60.7 Started: 1962 Smokeless Tobacco: Never Comments:Pt stated to be cut ting back a bit -05/10/25 Alcohol Use Standard Drinks/Week Comments Never 0 (1 standard drink = 0.6 oz pur e alcohol) PHQ-2 Answer Date Recorded Patient Health Questionnaire-2 Score 2 04/12/2025 AUDIT-C Answer Date Recorded Q1: How often do you have a drink containing alcohol? Never 05/10/2025 Q2: How many drinks containi ng alcohol do you have on a typical day when you are drinking? Patient does not drink Q3: How often do you have si x or more drinks on one occasion? Never 05/10/2025 Sex and Gender Information Value Date Recorded Sex Assigned at Not on file Legal Sex Male 3:03 PM EDT Gender Identity Not on file Sexual Orientation Not on file documented as of this encounter Functional Status * AUDIT-C Score Answer Date of Assessment Author 0 05/10/2025 3:51 PM EDT Kelly Su * Question Answer Date of Assessment Author Q1: How often do you have a drink containing alcohol? Never 05/10/2025 3:51 PM EDT Kelly Rodríguez Q2: How many drinks containing alcohol do you have on a typical day when you are drinking? Patient does not drink 05/10/2025 3:51 PM EDT Kelly Spears Q3: How often do you have six or more drinks on one occasion? Never 05/10/2025 3:51 PM RANDYT Kelly Rodríguez documented as of this encounter Medications at Time of Discharge albuterol 108 (90 Base) MCG/ACT inhalerIndication s:Chronic obstructive pulmonary disease, unspecified COPD type (CMS/HCC) Inhale 2 puffs every 4 hours as needed for wheezing or shortness of breath (or cough). 18 g 4 05/10/2025 budesonide-formot len (Symbicort) 160-4.5 MCG/ACT inhalerIndication s:Chronic obstructive pulmonary disease, unspecified COPD type (CMS/HCC) Inhale 2 puffs 2 times a day. Use with spacer. Rinse mouth with water after use to reduce aftertaste and incidence of candidiasis. Do not swallow. 10.2 g 11 05/10/2025 fluticasone (Flonase) 50 MCG/ACT nasal spray instill 1 spray into each nostril 2 times a day 03/11/2025 Spacer/Aero-Holdi ng Chambers deviceIndications :Chronic obstructive pulmonary disease, unspecified COPD type (CMS/HCC) For use with Symbicort 1 Units 05/10/2025 Spiriva Respimat 2.5 MCG/ACT inhalerIndication s:Chronic obstructive pulmonary disease, unspecified COPD type (CMS/HCC) Inhale 2 puffs daily. 4 g 11 05/10/2025 documented as of this encounter Plan of Treatment Upcoming Encounters Date Type Department Care Team (Late st Contact Info) Description 06/21/2025 11:00 AM EDT Consult [facility] Otolaryngology [address] [place] [address] Javier Dhillon MD [address] [place] [address] 08/10/2025 10:00 AM EST Office Visit [facility] Medicine Specialties [address] [place] [address] Sumit Shipley APRN [address] [place] [address] documented as of this encounter Procedures Procedure Name Priority Date/Time Associated Diagnosis Comments CT CHEST WO IV CONTRAST Routine 05/10/2025 2:31 PM EDT Chronic obstructive pulmonary disease, unspecified COPD type (CMS/HCC) History of MAC infection documented in this encounter Results * CT Chest wo IV Contrast (05/10/2025 [...] APRN IMG CT PROCEDURES Final R esult documented in this encounter Visit Diagnoses Diagnosis Chronic obstructive pulmonary disease, unspecified COPD type (CMS/HCC) History of MAC infection documented in this encounter Additional Health Concerns Assessment Noted Time A fall risk assessment has been complete d for the patient 05/10/2025 3:51 PM EDT A Body Mass Index follow-up plan has been documented for the patient 05/10/2025 4:33 PM EDT documented as of this encounter Care Teams Fruit Buying Grader Relationship Specialty Start Date End Date Rigo Maza MD [address] [place] [address] PCP - General 04/09/25 documented as of this encounter
--- OUTSIDE RECORDS SUMMARY | 2025-05-10 15:00 | XMS_ITS | Encounter Summary ---
Author Organization Healthcare Address [address] [place] [address] Care Team Providers Care Subway Train Driver Name Role Phone Rigo Maza MD Primary Care Provider [phone] Encounter Details Date Type Department Care Team (Latest Contact Info) Description 05/10/2025 3:00 PM EDT Ancillary Procedure [facility] [address] [place] [id number] Chronic obstructive pulmonary disease, unspecified COPD type (CMS/HCC) Social History Tobacco Use Types Packs/Day Years [...] on one occasion? Never 05/10/2025 3:51 PM EDT Kelly Rodríguez documented as of this encounter Plan of Treatment Upcoming Encounters Date Type Department Care Team (Late st Contact Info) Description 06/21/2025 11:00 AM EDT Consult [facility] Otolaryngology [address] [place] [address] Javier Dhillon MD [address] [place] [address] 08/10/2025 10:00 AM EST Office Visit [facility] Medicine Specialties [address] [place] [address] Sumit Shipley, CONTINUOUS MINING OPERATOR [address] [place] [address] documented as of this encounter Procedures Procedure Name Priority Date/Time Associated Diagnosis Comments HC PULM FUNCT TST PLETHYSMOGRAP - PLETHYSMOGRAPHY Routine 05/10/2025 3:30 PM EDT Chronic obstructive pulmonary disease, unspecified COPD type (CMS/HCC) documented in this encounter Results * (ABNORMAL) Pulmonary function test (05/10/2025 3:30 PM EDT) TID2UEU 1.38(A) 2.96 - 5.23 L VYAIRE PFT FVC PRED 4.08 VYAIRE PFT FVC LLN 2.96 VYAIRE PFT FVCPREZSCORE -4.02 VYAIRE PFT FVCPRE%PRED 34 % % VYAIRE PFT FVC PREDAUTH [facility]_Quanjer GLI (2011) VYAIRE PFT FVC Z-SCORE -4.02 VYAIRE PFT FEV1 PRE 0.50(A) 2.11 - 3.87 L VYAIRE PFT FEV1 PRED 3.02 VYAIRE PFT FEV1 LLN 2.11 VYAIRE PFT VUH8BRWCPTZUB -4.05 VYAIRE PFT FEV1_Pre%Pred 16 % % [facility] VYAIRE PFT FEV1 Z-SCORE -4.05 VYAIRE PFT FEV1/FVC PRE 36.07(A) 60.18 - 87.76 % VYAIRE PFT QBK0LCCRDMH 75 VYAIRE PFT VKG4KLASUO 60 VYAIRE PFT KIN0CAQJVNPNBFYO -3.91 VYAIRE PFT MBW3OSHLFX%PRED 48 % % VYAIRE PFT MNN4EMYHTODY [facility] (2011) VYAIRE PFT UYM1SQTTHANHX -4 VYAIRE PFT OWG72-53% PRE 0.23(A) 0.83 - 4.06 L/s VYAIRE PFT RFU95-01%_Pred 2.14 VYAIRE PFT SHH6698%LLN 0.83 VYAIRE PFT GHG6854%PREZSCORE -2.95 VYAIRE PFT UCX1499%PRE%PRED 11 % % VYAIRE PFT YQJ3843%[facility] (2011) VYAIRE PFT PEF PRE 0.92(A) 5.32 - 10.09 L/s VYAIRE PFT PEF PRED 7.71 VYAIRE PFT PEF LLN 5.32 VYAIRE PFT PEFPREZSCORE -4.69 VYAIRE PFT PEFPRE%PRED 12 % % VYAIRE P[facility] (1998) VYAIRE PFT AKSPDEAVWWFUBWGX9IYA 3.92(A) 18.35 - 33.69 ml/(min* mmHg) VYAIRE PFT DLCOSINGLEBREATH PRED 25.32 VYAIRE PFT DLCOSINGLEBREATH LLN 18.35 VYAIRE PFT DLCOSINGLEBREATH Z-SCORE -7.19 VYAIRE PFT DLCOSINGLEBREATH % PRED 15.5 % VYAIRE PFT DLCOSINGLEBREATH [facility] Stanojevic TLCO GLI (2019) VYAIRE PFT DLCOSINGLEBREATH Z-SCORE -7.19 05/10/2025 3:26 PM EDT VYAIRE PFT BPROIXCDEHXYFXQJK7FD E 3.92(A) 18.35 - 33.69 ml/(min* mmHg) VYAIRE PFT DLCOCSINGLEBREATH PRED 25.32 VYAIRE PFT DLCOCSINGLEBREATH LLN 18.35 VYAIRE PFT DLCOCSINGLEBREATH Z-SCORE -7.19 VYAIRE PFT DLCOCSINGLEBREATH % PRED 15.5 % VYAIRE PFT DLCOCSINGLEBREATH [facility]EDROO[facility] Stanojevic TLCO GLI (2019) VYAIRE PFT EFPGDW3IUD 0.94(A) 2.83 - 5.03 ml/(min* mmHg*L) VYAIRE PFT DLCOVAPRED 3.88 VYAIRE PFT DLCOVALLN 2.83 VYAIRE PFT DLCOVAZSCORE -5.29 VYAIRE PFT DLCOVA%PRED 24.3 % VYAIRE PFT DLCOVAPREDAUT Stanojevic TLCO GLI (2019) VYAIRE PFT DLCOVAZSCORE -5.29 05/10/2025 3:26 PM EDT VYAIRE PFT BCTKVGUYH7TKP 0.94(A) 2.83 - 5.03 ml/(min* mmHg*L) VYAIRE PFT DLCOC SB/VA PRED 3.88 VYAIRE PFT DLCOC SB/VA LLN 2.83 VYAIRE PFT DLCOC SB/VA Z-SCORE -5.29 VYAIRE PFT DLCOC SB/VA % PRED 24.3 % VYAIRE PFT DLCOC SB/VA PREDAUTH Stanojevic TLCO GLI (2019) VYAIRE PFT DLCOC SB/VA Z-SCORE -5.29 05/10 3:26 PM EDT VYAIRE PFT QDMBTURJLUVCHZ7NUF 4.16(A) 5.26 - 7.95 L VYAIRE PFT VASINGLEBREATH PRED 6.55 VYAIRE PFT VASINGLEBREATH LLN 5.26 VYAIRE PFT VASINGLEBREATH Z-SCORE -3.17 VYAIRE PFT VASINGLEBREATH % PRED 63.5 % VYAIRE PFT [facility]BREATH [facility] GLI (2019) VYAIRE PFT VASINGLEBREATH Z-SCORE -3.17 05/10/2025 3:26 PM EDT VYAIRE PFT HGUYRHWBMKYHQBF3JMP 1.89(A) 2.96 - 5.23 L VYAIRE PFT IVCSINGLEBREATH PRED 4.08 VYAIRE PFT IVCSINGLEBREATH LLN 2.96 VYAIRE PFT IVCSINGLEBREATH Z-SCORE -3.24 VYAIRE PFT IVCSINGLEBREATH % PRED 46.3 % VYAIRE PFT IVCSINGLEBREATH [facility]EDROO[facility] US_[facility]jer GLI (2011) VYAIRE PFT CHARLIE% VCMAX PRE 100.00 % VYAIRE PFT TLC SB PRE 4.26(A) 5.70 - 8.95 L VYAIRE PFT TLCSINGLEBREATH PRED 7.32 VYAIRE PFT TLCSINGLEBREATH LLN 5.70 VYAIRE PFT TLCSINGLEBREATH Z-SCORE -3.15 VYAIRE PFT TLCSINGLEBREATH % PRED 58.2 % VYAIRE PFT TLCSINGLEBREATH [facility] Lung volumes GLI (2019)__ VYAIRE PFT HB PRE 14.60 g(Hb)/dL VYAIRE PFT LBU0MJM 8.53 5.70 - 8.95 L VYAIRE PFT TLCPRED 7.32 VYAIRE PFT TLCLLN 5.70 VYAIRE PFT TLCULN 8.95 VYAIRE PFT TLCZSCORE 1.22 VYAIRE PFT TLC%PRED 116.6 % VYAIRE PFT TLCPREDAUTCincinnati [facility] Lung volumes GLI (2019)__ VYAIRE PFT VC0PRE 1.68(A) 2.96 - 5.23 L VYAIRE PFT VCPRED 4.08 VYAIRE PFT VCLLN 2.96 VYAIRE PFT VCULN 5.23 VYAIRE PFT VCZSCORE -3.55 VYAIRE PFT VC%PRED 41.2 % VYAIRE PFT VCPREDAUTH [facility] GLI (2011) VYAIRE PFT IC0PRE 0.83(A) 2.08 - 3.90 L VYAIRE PFT ICPRED 3.01 VYAIRE PFT ICLLN 2.08 VYAIRE PFT ICULN 3.90 VYAIRE PFT IC Z-SCORE -3.68 VYAIRE PFT IC%PRED 27.6 % VYAIRE PFT ICPREDAUTCincinnati [facility] Lung volumes GLI (2019)__ VYAIRE PFT NLIWSQPC1TGE 7.69(A) 2.92 - 5.74 L VYAIRE PFT FRCPLETH PRED 4.17 VYAIRE PFT FRCPLETH LLN 2.92 VYAIRE PFT FRCPLETH ULN 5.74 VYAIRE PFT FRCPLETH Z-SCORE 3.32 VYAIRE PFT FRCPLETH % PRED 184.5 % VYAIRE PFT FRCPLETH PREDAUT [facility] Lung volumes GLI (2019)__ VYAIRE PFT CBE5SJO 0.85 0.36 - 2.72 L VYAIRE PFT ERVPRED 1.30 VYAIRE PFT ERVLLN 0.36 VYAIRE PFT ERVULN 2.72 VYAIRE PFT ERV Z-SCORE -0.67 VYAIRE PFT ERV%PRED 65.7 % VYAIRE PFT ERVPREDAUT [facility] Lung volumes GLI (2019)__ VYAIRE PFT RV0PRE 6.84(A) 1.58 - 4.38 L VYAIRE PFT RVPRED 2.84 VYAIRE PFT RVLLN 1.58 VYAIRE PFT RVULN 4.38 VYAIRE PFT RVZSCORE 3.84 VYAIRE PFT RV%PRED 240.8 % VYAIRE PFT RVPREDAUT [facility] Lung volumes GLI (2019)__ VYAIRE PFT RV%WXJ6KUL 80.25(A) 26.62 - 53.39 % VYAIRE PFT RV%TLCPRED 40 VYAIRE PFT RV%TLCLLN 27 VYAIRE PFT RV%TLCULN 53 VYAIRE PFT RV%TLCZSCORE 4.72 VYAIRE PFT RV%TLC%PRED 202.2 % VYAIRE PFT RV%TLCPREDGro[facility] Lung volumes GLI (2019)__ VYAIRE PFT Anatomical Region Laterality Modality PFT 05/10/2025 3:08 PM EDT Narrative 05/10/2025 7:18 PM EDT Pulmonary Function Testing Report Ric Forde underwent pulmonary function testing today at the [facility]. The patient underwent spirometry, lung volumes by [...] There are no prior studies for comparison. Sumit Shipley APRN PFT ORDERABLES Final Res ult documented in this encounter Visit Diagnoses Diagnosis Chronic obstructive pulmonary disease, unspecified COPD type (CMS/HCC) documented in this encounter Additional Health Concerns Assessment Noted Time A fall risk assessment has been complete d for the patient 05/10/2025 3:51 PM EDT A Body Mass Index follow-up plan has been documented for the patient 05/10/2025 4:33 PM EDT documented as of this encounter Care Teams Subway Train Driver Relationship Specialty Start Date End Date Rigo Maza MD [address] [facility] [address] PCP - General 04/09/25 documented as of this encounter
--- OUTSIDE RECORDS SUMMARY | 2025-05-10 16:00 | XMS_ITS | Encounter Summary ---
Author Organization Healthcare Address [address] [id number] Care Team Providers Care Marketing Development Representative Name Role Phone Rigo Maza MD Primary Care Provider [phone] Reason for Referral * Consultation (Routine) - Authorized Specialty Diagnoses / Procedures Referred By Maricarmen [place]more Referred To Contact Cardiology Diagnoses Irregular heart rate Abnormal ECG Aneurysm of ascending aorta without rupture (CMS/HCC) Sumit Shipley APRN [address] [address] Phone: tel: fax: [facility] () [address] [place] [address] Phone: tel: fax: Referral ID Status Reason Start Date Expiration Date Visits Requested Visits Authorized [id number] Authorized Specialty Services Required 05/10/2025 11/09/2026 [address] Schmitz at [facility] * Consultation (Routine) - Authorized Specialty Diagnoses / Procedures Referred By Maricarmen elmore Referred To Contact Diagnoses Chronic obstructive pulmonary disease, unspecified COPD type (CMS/HCC) Sumit Shipley APRN [address] [address] Phone: tel: fax: Referral ID Status Reason Start Date Expiration Date V isits Requested Visits Authorized [id number] Authorized 05/10/2025 11/09/2026 1 1 Reason for Visit * Reason Comments COPD Follow-up * Consultation (Routine) - Closed Specialty Diagnoses / Procedures Referred By Maricarmen t Referred To Contact Diagnoses Current smoker Chronic obstructive pulmonary disease, unspecified COPD type (CMS/HCC) History of MAC infection Sumit Shipley, DICTATING MACHINE TYPIST [address] [facility] [address] [place] [address] Phone: tel: fax: Referral ID Status Reason Start Date Expiration Date Visits Re quested Visits Authorized [id number] Closed 04/12/2025 10/12/2026 1 1 Encounter Details Date Type Department Care Team (Late st Contact Info) Description 05/10/2025 4:00 PM EDT Office Visit [facility] Medicine Specialties [address] [place] [address] Sumit Shipley, DICTATING MACHINE TYPIST [address] [facility] [address] [place] [address] Chronic obstructive pulmonary disease, unspecified COPD type (CMS/HCC) (Primary Dx); Centrilobular emphysema (CMS/HCC); Current smoker; History of MAC infection; Irregular heart rate; Abnormal ECG; Aneurysm of ascending aorta without rupture (CMS/HCC); Underweight (BMI < 18.5) Social History Tobacco Use Types Packs/Day Years Used Date Smoking Tobacco: Every Day Cigarettes 1 60.7 Started: 1962 Smokeless Tobacco: Never Tobacco Cessation:Ready to Q uit: Not Asked; Counseling Given: Not Answered Comments:Pt stated to be cutting back a bit -05/10/25 Alcohol Use Standard [...] Sign Reading Time Taken Comments Blood Pressure 121/69 05/10/2025 3:47 PM EDT Pulse 70 05/10/2025 3:47 PM EDT Temperature - - Respiratory Rate 18 05/10/2025 3:47 PM EDT Oxygen Saturation 95% 05/10/2025 3:47 PM EDT RA Inhaled Oxygen Concentration - - Weight 45.2 kg (99 lb 10.4 oz) 05/10/2025 3:47 P M EDT Height 180.3 cm (5' 11 ) 05/10/2025 3:47 PM EDT Body Mass Index 13.9 05/10/2025 3:47 PM EDT documented in this encounter Functional Status * AUDIT-C Score [...] Kelly Rodríguez documented as of this encounter Miscellaneous Notes * Progress Notes - Sumit Shipley APRN - 05/10/2025 4:00 PM EDT Images from the original note were not included. PULMONARY FOLLOW UP VISIT Ric Forde is a 80 y.o. male who presents for follow up regarding COPD and need for pulmonary surgical evaluation. Address: [address] [place] [address] Primary Care Provider: Rigo Maza MD HISTORY OF PRESENT ILLNESS PMHx includes COPD, MAC infection, lung nodules/mass, current smoker. Initial visit 04/12/2025: Pulmonary history obtained from available outside pulm [...] septoplasty/turbinate reduction Patient reports he saw outside circulation tender for around 9 months. He said all he wanted to do was treat him with pills. He was taking the pills as prescribed then his home health nurse told him thosemedications were for TB. He was very concerned and called his circulation tender. Mr. Forde felt like hisdoctor could not explain the treatment plan well so he stopped taking his medication and never returned to pulmonary clinc. He was diagnosed with COPD many years ago at the [place]. He is compliant with triple inhaler therapy [...] symptoms. His last PFT was likely around 3982-0653. He continues to smoke 1 PPD, has been smoking for the past 60 years. He does not exacerbate frequently. Never been hospitalized for his breathing. Denies fever, chills, NS, lymphadenopathy. Denies AR. Denies GERD. Today 05/10/2025: He tells me that he is not on Symbicort because insurance made him stop this and switch to a powderinhaler. He does not know the name of this inhaler. He is also using Spiriva Respimat 2 puffs once per day and albuterol 4x per day. He did feel better on Symbicort. He continues to have CORONA and is wearing oxygen with exertion. He is now wearing a fan around his neck to help him breath. He has verylittle wheezing. He does have productive cough in the morning when he drinks his coffee, mucous is white, never bloody. He has not been sick this past month. He continue to smoke but has cut back to 3/4 PPD. He says he had PNA vaccine from PCP last year. Never gets a flu shot. He was contacted by [facility] but declined an appointment with them. He saw Dr. Schmitz in [place] last year and he was told nothing was wrong. He would like to see him again rather than see [facility]. He completed PFTs and a CT Chest today. Social/Exposure/Pertinent Pulmonary History: The patient was born full term and healthy. No history of childhood lung disease. COPD diagnosed many years ago. No known FH of lung disease. He lives in a mobile home with his and dog. No known mold or water damage. No down product use. No humidifier/sauna/hot tub/Jacuzzi use. 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 Horse [...] packs/day: 1.00 Average packs/day: 1 pack/day for 60.6 years (60.6 ttl pk-yrs) Types: Cigarettes Start date: 1962 Smokeless tobacco: Never Tobacco comments: Pt stated to be cutting back a bit -05/10/25 Vaping Use Vaping status: Never Used Substance and Sexual Activity Alcohol use: Never Drug use: Never Sexual activity: Not on [...] History[4] Allergies[5] Immunization History Administered Date(s) Administered Sushil COVID-19 Vaccine (Blue Cap) 18+ 02/10/2021, 08/07/2021 VACCINE / DOSE Flu Tetanus Pneumovax Shingles Current Medications[6] Tobacco Allergies Meds Problems Med Hx Surg Hx Fam Hx REVIEW OF SYSTEMS Review of Systems Respiratory: Positive for cough, shortness of breath and wheezing. Assessment Scales: ACT: CAT: COPD ASSESSMENT (CAT) How often do you cough?: 2 Do you have phelgm (mucus) in your chest?: 2 Do you have tightness in your chest?: 0 No tightness at all Do you feel breathless walking up a hill or stairs?: 4 Are you limited to doing activities at home?: 4 Are you confident in leaving home despite your lung condition?: 0 Confident leaving home Do you have the ability to sleep soundly despite your lung condition?: 3 How are your energy levels?: 3 COPD Score Score: 18 MMRC: PHYSICAL EXAMINATION Visit Vitals BP 121/69 (BP Location: Right arm, Patient Position: Sitting) Pulse 70 Ht 1.803 m (5' 11 ) Wt 45.2 kg (99 lb 10.4 oz) SpO2 95% Comment: RA BMI 13.90 kg/m?? Physical Exam Vitals reviewed. Constitutional: General: He is not in acute distress. Appearance: Normal appearance. He is underweight. He is not ill-appearing. HENT: Head: Normocephalic. Eyes: Conjunctiva/sclera: Conjunctivae normal. Pupils: Pupils are equal, round, and reactive to light. Pulmonary: Effort: Pulmonary effort is normal. Musculoskeletal: General: Normal range of motion. Cervical [...] PLT 327 04/12/2025 04/12/2025: AEC 160 IgE 34 A1AT: 230 M1M1 Radiology Results: I have personally reviewed the images in EMR. CT Chest (05/10/2025) FINDINGS: Mediastinum and Pleura: The heart is normal in size. Mild calcified coronary artery disease. 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 Lack of intravenous contrast limits evaluation of thehila. Lungs: Severe underlying changes of emphysema. There [...] prior fungal infection or atypical infectious process. CT Chest (11/13/2023) Worsening consolidation and volume loss in the left upper lobe, most likely inflammatory. Further improvement in the left upper lobe nodular opacity and slight improvement in the cavitary area in theleft posterior mid thorax. Other findings are stable. CT Chest (02/15/2023) Worsening consolidation in the left upper lobe, most likely inflammatory/infectious. Partially improved other previously identified focal opacities. Worsening fluid and a posterior left lung cavity, most likely inflammatory. CT Chest (11/20/2022) Severe panlobular emphysematous changes involving the mid and upper lung broussard most severely. New alveolar opacities in the anterolateral left upper lobe extending into the perihilar region with mild local volume loss. New bandlike alveolar density with consolidative components in the lateral right. Pulmonary Function Testing: I have personally reviewed and interpreted these values. (05/10/2025) Impression: This test represents post-spirometry as patient used inhaler just prior to testing Severe obstruction with air trapping DLCO uncorrected for Hgb is severely reduced in the setting of IVC <LLN Multi-Ox: (04/12/2025) Oxygen Saturation Test Pulse Oximetry [...] pulmonary disease, unspecified COPD type (CMS/HCC) 2. Centrilobular emphysema (CMS/HCC) 3. Current smoker 4. History of MAC infection 5. Irregular heart rate 6. Abnormal ECG 7. Aneurysm of ascending aorta without rupture (CMS/HCC) 8. Underweight (BMI < 18.5) Orders Placed This Encounter Procedures Follow Up Pulm Standing Status: Future Expected Date: 08/10/2025 Expiration Date: 06/10/2026 Referral Priority: Routine Referral Type: Consultation Number of Visits Requested: 1 Ambulatory referral to Cardiology Standing Status: Future Expected Date: 05/10/2025 Expiration Date: 11/10/2026 Referral Priority: Routine Referral Type: Consultation Referral Reason: Specialty Services Required Referral Location: [facility] () Requested Specialty: Cardiology Number of Visits Requested: 1 DISCUSSION/SUMMARY Ric Forde is a pleasant 80 y.o. male who presented today for follow up. He was referred by outside ENT for surgical clearance for nasal septoplasty/turbinate reduction. Patient has significant pulmonary history but has not been following with pulmonary so he was referred here. COPD Pulmonary emphysema Current smoker -- FEV1: 16% -- Grade 4/Group B -- CAT today 18 -- Was using Symbicort but tells me insurance made him switch to a powder inhaler -- Will send Symbicort and Spiriva Respimat to [facility] for triple inhaler therapy -- He has severe COPD with FEV1 of 16% therefore he needs HFA inhalers to provide adequate mediation distribution -- Continue PRN BROOKE -- Does not exacerbate frequently and has never been hospitalized for a respiratory illness -- He bought his own portable oxygen concentrator and wears 1 lpm AAT and 2 lpm with exertion -- Multi ox performed in office last visit showed no significant desaturation therefore no indication for oxygen, advised patient of this -- He is a current smoker of 1 PPD (60 pack year history), cessation strongly advised -- AEC 160, IgE 34, A1AT: 230 M1M1 -- I recommended pulmonary rehab and this is available to him in [place], he says he will consider this -- Also recommended PCV-20 which he says he got at PCP last year -- He does qualify for LDCT LCS until age 82, due April 2026 (CT today showed no suspicious pulmonary nodule) -- He may qualify for BLVR, can discuss next visit. CT today showed severe emphysematous changes. History of MAC infection -- It seems his lung nodules were first noted in 2021, he refused treatment/evaluation at that time -- In 2022 sputum cultures were +MAC and his imaging showed multifocal consolidations/cavitations so treatment with azithromycin, ethambutol, and rifampin was started -- He reports compliance with antibiotics x 9 months but stopped in Sep 2023 and never returned to his circulation tender -- Last CT was in Oct 2023 which showed worsening consolidation/volume loss in PUSHPA but further improvement in nodule opacities and and cavitations -- Cough is not bothersome and is productive of white phlem -- Induced sputum attempted last visit in office for respiratory cultures including AFB, he was notable to produce -- CT chest obtained today which showed thick-walled cystic changes involving the left lung apex with associated bronchiectasis, likely representing prior superimposed atypical infection. Mild volumeloss. Minimal scarring within the right middle lobe as well. No focal airspace consolidation or suspicious pulmonary nodule. -- Overall imaging appears unchanged and he is not frequently exacerbating -- Discussed trying induced sputum again today but patient told me that even if this was +MAC he would refuse to restart treatment Irregular HR Abnormal ECG Ascending aortic aneurysm -- ECG obtained last visit which showed sinus rhythm with marked sinus arrhythmia as well as anterolateral infarct, age undetermined -- Referral placed to Cardiology but patient declined to get this scheduled -- CT today showed 4.1 cm ascending aortic aneurysm -- Discussed that he needs to see a clinical pharmacologist and he said he would prefer to go back to his local clinical pharmacologist Dr. Schmitz, will refer today Underweight -- Likely due to chronic lung disease ARISCAT Score for any Postoperative Pulmonary Complication* Patient points: Age <50 (0 points) 51-80 (+3) >80 (+16) 3 Preoperative SpO2 >96% (0 points) 91-95% (+8) <90% (+24) 8 Recent respiratory infection (<1 month) No (0 points) Yes (+17) 0 Preop anemia (Hgb <10) No (0 points) Yes (+11) 0 Surgical incision Peripheral (0 points) Abdominal (+15) Thoracic (+24) 0 Duration of Surgery < 2 hours (0 points) 2-3 hours (+16) >3 hours (+23) 16 Emergency procedure No (0 points) Yes (+8) 0 Total = 27 Low Risk <26 = 1.6% risk Intermediate Risk 26-44 = 13% risk High Risk >45 = 42% risk *respiratory failure, respiratory infection, pleural effusion, atelectasis on chest x-ray, pneumothorax, bronchospasm treated with bronchodilators, and aspiration pneumonitis. Patient is very high risk for jb operative pulmonary complications considering his history of severe COPD (FEV1 16%), pulmonary emphysema, and hx of MAC infection with non-compliance to treatment. Complications include perioperative pneumonia, atelectasis, COPD exacerbation, and a prolonged ventilator course. However, this does not preclude him from under going surgery. I would recommend laparoscopic approach and spina/epidural anesthesia if possible but would defer ultimate decision to his surgeon and anesthesiologist. Overall, to reduce the risk of post operative pulmonary complications I recommended: -- Lung expansion maneuvers postoperatively -- Pulmonary Rehab -- Defer elective surgery if pt is having acute exacerbation -- Tobacco cessation Pulmonary Health Maintenance: Pneumonia Vaccination: UTD per patient by PCP last year Influenza Vaccination: refuses COVID Vaccination: recommend RSV Vaccination: recommend LDCT Lung Cancer Screening: due April 2026 I will follow-up with the patient in 3 months, or sooner if needed. The patient was agreeable to the above plan, and all questions were answered accordingly. I spent 32 minutes performing all or some of the following: Reviewing the history, performing an examination and evaluation, entering clinical information into the EHR, interpreting the results, counseling family/patient/caregiver, reviewing x-rays and laboratories, ordering medications, tests and procedures, referring and communicating with consulting health daycare provider and care coordination. Parts of this note may have been dictated using [employer] Direct voice recognition software. As a result, errors may occur. When identified, these optometric tech errors are corrected, but while every attempt is made to prevent/correct these, errors may still exist. Sumit Shipley APRN [facility] Pulmonary Division [facility] Phone number: [phone] Fax number: [phone] Note to patient: The [employer] Cares Act [...] Diagnosis Date COPD (chronic obstructive pulmonary disease) (CMS/HCC) [2] Past Surgical History: Procedure Laterality Date CATARACT EXTRACTION TOTAL HIP ARTHROPLASTY Left 2001 [3] History reviewed. No pertinent family history. [4] Social History Tobacco Use Smoking Status Every Day Current packs/day: 1.00 Average packs/day: 1 pack/day for 60.6 years (60.6 ttl pk-yrs) Types: Cigarettes Start date: 1962 Smokeless Tobacco Never Tobacco Comments Pt stated to be cutting back a bit -05/10/25 [5] Allergies Allergen Reactions Penicillins Unknown - Patient states they do not know rxn details Was told this by [6] Current Outpatient Medications: albuterol 108 (90 Base) MCG/ACT inhaler, Inhale 2 puffs every 4 hours as needed for wheezing or shortness of breath (or cough)., Disp: 18 g, Rfl: 4 fluticasone (Flonase) 50 MCG/ACT nasal spray, instill 1 spray into each nostril 2 times a day, Disp: , Rfl: Spiriva Respimat 2.5 MCG/ACT inhaler, Inhale 2 puffs daily., Disp: 4 g, Rfl: 11 budesonide-formoterol (Symbicort) 160-4.5 MCG/ACT inhaler, Inhale 2 puffs 2 times a day. Use with spacer. Rinse mouth with water after use to reduce aftertaste and incidence of candidiasis. Do not swallow., Disp: 10.2 g, Rfl: 11 Spacer/Aero-Holding Chambers device, For use with Symbicort, Disp: 1 Units, Rfl: 0 documented in this encounter Plan of Treatment Upcoming Encounters Date Type Department Care Team (Late st Contact Info) Description 06/21/2025 11:00 AM EDT Consult [facility] Otolaryngology [address] [place] [address] Javier Dhillon MD [address] [place] [id number] 08/10/2025 10:00 AM EST Office Visit [facility] Medicine Specialties [address] [place] [address] Sumit Shipley APRN [address] [place] [address] Scheduled Referrals Name Type Priority Associated Diagnoses Orde r Schedule Follow Up Pulm Outpatient Referral Routine Chronic obstructive pulmonary disease, unspecified COPD type (CMS/HCC) Expected: 08/10/2025, Expires: 06/10/2026 Ambulatory referral to Cardiology Outpatient Referral Routine Irregular heart rate Abnormal ECG Aneurysm of ascending aorta without rupture (CMS/HCC) Expected: 05/10/2025 (Approximate), Expires: 11/10/2026 documented as of this encounter Visit Diagnoses Diagnosis Chronic obstructive pulmonary disease, unspecified COPD type (CMS/HCC)- Primary Centrilobular emphysema (CMS/HCC) Current smoker History of MAC infection Irregular heart rate Abnormal ECG Nonspecific abnormal electrocardiogram (ECG) (EKG) Aneurysm of ascending aorta without rupture (CMS/HCC) Underweight (BMI < 18.5) documented in this encounter Additional Health Concerns Assessment Noted Time A fall risk assessment has been complete d for the patient 05/10/2025 3:51 PM EDT A Body Mass Index follow-up plan has been documented for the patient 05/10/2025 4:33 PM EDT documented as of this encounter Care Teams Marketing Development Representative Relationship Specialty Start Date End Date Rigo Maza MD [address] [place] [address] PCP - General 04/09/25 documented as of this encounter
--- NOTE | 2025-06-10 10:44 | US_ITS ---
FINAL REPORT CLINICAL HISTORY: SMOKER,WOUND LT ANKLE COMPARISON: None FINDINGS: ANKLE-BRACHIAL PRESSURE INDICES Pressure indices are as follows: RIGHT LOWER EXTREMITY: Ankle-brachial pressure index: 0.55 Comments: Mild to moderate peripheral arterial disease. LEFT LOWER EXTREMITY: Ankle-brachial pressure index: 0.46 Comments: Moderate peripheral arterial disease. IMPRESSION: Mild to moderate peripheral arterial disease in the lower extremities. Reviewed, Interpreted and Dictated by Paola Kemp MD Transcribed by Anat Howard Authenticated and [facility]
--- OUTSIDE RECORDS SUMMARY | 2025-06-10 10:54 | XMS_ITS | Encounter Summary ---
Author Organization Healthcare Address [address] [place] [address] Care Team Providers Care Psychology Lecturer Name Role Phone Rigo Maza MD Primary Care Provider [phone] Encounter Details Date Type Department Care Team (Late st Contact Info) Description 04/16/2025 Telephone [facility] Medicine Specialties [address] [place] [address] Sumit Shipley, PETROGRAPHER [address] [place] [address] Social History Tobacco Use Types Packs/Day Years [...] as of this encounter Miscellaneous Notes * Telephone Encounter - Kaye Carolina RN - 04/16/2025 12:33 PM EDT Called back and informed them that provider wants pt to follow back up on 05/10 and we should have aclearance for her then. She was okay with that since its an elective surgery that hasn't yet been scheduled. * Telephone Encounter - Diana Shah - 04/16/2025 11:34 AM EDT Clinical Concern/Question Reason for Call: Ridge Cheema Is calling to see if pt has been cleared for surgery Best contact number: Other: [phone] Optimal time of day to reach caller: ANYTIME Additional comments/information from caller: None Note: Please do not reply to this message. Follow-up communication and further actions as a result of this message need to be communicated with the patient directly, if the patient is not active onMyChart. If the patient is active on MyChart, they will receive notification of the communication/outcome via [employer]sh[employer]. documented in this encounter Plan of Treatment Upcoming Encounters Date Type Department Care Team (Late st Contact Info) Description 06/21/2025 11:00 AM EDT Consult [facility] Otolaryngology [address] [place] [address] Javier Dhillon MD [address] [place] [id number] 08/10/2025 10:00 AM EST Office Visit [facility] [address] [place] [address] Sumit Shipley, PETROGRAPHER [address] [place] [address] documented as of this encounter Visit Diagnoses Not on filedocumented in this encounter Additional Health Concerns Assessment Noted Time A fall risk assessment has been complete d for the patient 04/12/2025 2:13 PM EDT A Body Mass Index follow-up plan has been documented for the patient 04/12/2025 3:26 PM EDT documented as of this encounter Care Teams Psychology Lecturer Relationship Specialty Start Date End Date Rigo Maza MD [address] [place] [address] PCP - General 04/09/25 documented as of this encounter
--- OUTSIDE RECORDS SUMMARY | 2025-06-10 10:54 | XMS_ITS | Encounter Summary ---
Author Organization Healthcare Address [address] [place] [address] Care Team Providers Care Society Reporter Name Role Phone Rigo Maza MD Primary Care Provider [phone] Encounter Details Date Type Department Care Team (Late st Contact Info) Description 02/15/2023 Orders Only External Location [address] [place] [address] Provider, External Social History Tobacco Use Types Packs/Day Years Used Date Smoking Tobacco: Never Assessed Sex and Gender Information Value Date Recorded Sex Assigned at Not on file Legal Sex Male 3:03 PM EDT Gender Identity Not on file Sexual Orientation Not on file documented as of this encounter Plan of Treatment Upcoming Encounters Date Type Department Care Team (Late st Contact Info) Description 06/21/2025 11:00 AM EDT Consult [facility] Otolaryngology [address], [address]rd [place] [id number] Javier Dhillon MD [address] [facility] [address] [place] [address] 08/10/2025 10:00 AM EST Office Visit [facility] [address], [address] [place] [address] Sumit Shipley, TAYLOR [address] [place] [address] documented as of this encounter Procedures Procedure Name Priority Date/Time Associated Diagnosis Comments CT THORACIC OUTSIDE IMAGES 02/15/2023 10:13 AM EDT documented in this encounter Results * CT THORACIC OUTSIDE IMAGES (02/15/2023 10:13 AM EDT) Anatomical Region Laterality Modality Computed Tomogra phy 02/15/2023 10:1 3 AM EDT us External Provider IMG CT PROCEDURES Final Result documented in this encounter Visit Diagnoses Not on filedocumented in this encounter Care Teams Society Reporter Relationship Specialty Start Date End Date Rigo Maza MD [address] [facility] [place] [address] PCP - General 04/09/25 documented as of this encounter
--- OUTSIDE RECORDS SUMMARY | 2025-06-10 10:54 | XMS_ITS | Encounter Summary ---
Author Organization Healthcare Address [address] [place] [address] Care Team Providers Care Booth Supervisor Name Role Phone Rigo Maza MD Primary Care Provider [phone] Encounter Details Date Type Department Care Team (Late st Contact Info) Description 11/13/2023 Orders Only External Location [address] [place] [address] Provider, External Social History Tobacco Use Types [...] Info) Description 06/21/2025 11:00 AM EDT Consult [facility] Otolaryngology [address], [address] [place] [phone] Javier Dhillon MD [address] [place] [address] 08/10/2025 10:00 AM EST Office Visit [facility] Medicine Specialties [address], [address] [place] [address] Sumit Shipley, TAYLOR [address] [place] [address] documented as of this encounter Procedures Procedure Name Priority Date/Time Associated Diagnosis Comments CT THORACIC OUTSIDE IMAGES 11/13/2023 2:28 PM EST documented in this encounter Results * CT THORACIC OUTSIDE IMAGES (11/13/2023 2:28 PM EST) Anatomical Region Laterality Modality Computed Tomogra phy 11/13/2023 2:28 PM EST us External Provider IMG CT PROCEDURES Final Result documented in this encounter Visit Diagnoses Not on filedocumented in this encounter Care Teams Booth Supervisor Relationship Specialty Start Date End Date Rigo Maza MD [address] [place] [address] PCP - General 04/09/25 documented as of this encounter
--- OUTSIDE RECORDS SUMMARY | 2025-06-10 10:54 | XMS_ITS | Encounter Summary ---
Author Organization Healthcare Address [address] [place] [address] Care Team Providers Care Fast Food Crew Lead Name Role Phone Rigo Maza MD Primary Care Provider [phone] Encounter Details Date Type Department Care Team (Late Contact Info) Description 05/27/2025 Telephone [facility] [address], [address] [place] [address] Minor Espino Social History Tobacco Use Types Packs/Day Years Used Date Smoking Tobacco: Every Day Cigarettes 1 60.7 Started: 1963 Smokeless Tobacco: Never Comments:Pt stated to be [...] Encounters Date Type Department Care Team (Late Contact Info) Description 06/21/2025 11:00 AM EDT Consult [facility] Otolaryngology [address], [address] [place] [address] Javier Dhillon MD [address] [place] [address] 08/10/2025 10:00 AM EST Office [facility] [address], [address] [place] [address] Sumit Shipley, OFFSET PRINTING OPERATOR [address] [place] [address] documented as of this encounter Visit Diagnoses Not on filedocumented in this encounter Additional Health Concerns Assessment Noted Time A fall risk assessment has been complete d for the patient 05/10/2025 3:51 PM EDT A Body Mass Index follow-up plan has been documented for the patient 05/10/2025 4:33 PM EDT documented as of this encounter Care Teams Fast Food Crew Lead Relationship Specialty Start Date End Date Rigo Maza MD [address] [place] [address] PCP - General 04/09/25 documented as of this encounter
--- OUTSIDE RECORDS SUMMARY | 2025-06-10 10:54 | XMS_ITS | Encounter Summary ---
Author Organization Healthcare Address [address] [place] [address] Care Team Providers Care Manager Plumbing Name Role Phone Rigo Maza MD Primary Care Provider [phone] Encounter Details Date Type Department Care Team (Latest Contact Info) Description 05/10/2025 Travel Social History Tobacco Use Types Packs/Day Years [...] Info) Description 06/21/2025 11:00 AM EDT Consult [facility] [address], [address] [place] [address] Javier Dhillon MD [address] [place] [address] 08/10/2025 10:00 AM EST Office Visit [facility] Medicine Specialties [address], [address] [place] [address] Sumit Shipley, STRAIGHTENER [address] [place] [address] documented as of this encounter Visit Diagnoses Not on filedocumented in this encounter Additional Health Concerns Assessment Noted Time A fall risk assessment has been complete d for the patient 05/10/2025 3:51 PM EDT A Body Mass Index follow-up plan has been documented for the patient 05/10/2025 4:33 PM EDT documented as of this encounter Care Teams Manager Plumbing Relationship Specialty Start Date End Date Rigo Maza MD [facility] [place] [address] PCP - General 04/09/25 documented as of this encounter
--- OUTSIDE RECORDS SUMMARY | 2025-06-10 10:54 | XMS_ITS | Encounter Summary ---
Author Organization Healthcare Address [address] [place] [address] Care Team Providers Care Personal Chef Name Role Phone Rigo Maza MD Primary Care Provider [phone] Encounter Details Date Type Department Care Team (Late st Contact Info) Description 11/20/2022 Orders Only External Location [address] [place] [address] Provider, External Social History Tobacco Use Types [...] Info) Description 06/21/2025 11:00 AM EDT Consult [facility] Otolaryngology [address], [address] [place] [address] Javier Dhillon MD [address] [facility] [address] [place] [address] 08/10/2025 10:00 AM EST [facility] [address], [address] [place] [address] Sumit Shipley, TAYLOR [address] [place] [address] documented as of this encounter Procedures Procedure Name Priority Date/Time Associated Diagnosis Comments CT THORACIC OUTSIDE IMAGES 11/20/2022 8:25 PM EST documented in this encounter Results * CT THORACIC OUTSIDE IMAGES (11/20/2022 8:25 PM EST) Anatomical Region Laterality Modality Computed Tomogra phy 11/20/2022 8:25 PM EST us External Provider IMG CT PROCEDURES Final Result documented in this encounter Visit Diagnoses Not on filedocumented in this encounter Care Teams Personal Chef Relationship Specialty Start Date End Date Rigo Maza MD [address] [place] [address] PCP - General 04/09/25 documented as of this encounter
--- OUTSIDE RECORDS SUMMARY | 2025-06-10 10:54 | XMS_ITS | Encounter Summary ---
Author Organization Healthcare Address [address] [place] [address] Care Team Providers Care Professional Benefits Sales Consultant Name Role Phone Rigo Maza MD Primary Care Provider [phone] Encounter Details Date Type Department Care Team (Latest Contact Info) Description 04/12/2025 Travel Social History Tobacco Use Types Packs/Day [...] Questionnaire-2 Score 2 04/12/2025 2:13 PM EDT Emelian Guzman documented as of this encounter Plan of Treatment Upcoming Encounters Date Type Department Care Team (Late st Contact Info) Description 06/21/2025 11:00 AM EDT Consult [facility] [address], [address] [place] [address] Javier Dhillon MD [address] [place] [address] 08/10/2025 10:00 AM EST Office Visit [facility] [address], [address] [place] [address] Sumit Shipley, DOCUMENTATION SPEC [address] [place] [address] documented as of this encounter Visit Diagnoses Not on filedocumented in this encounter Additional Health Concerns Assessment Noted Time A fall risk assessment has been complete d for the patient 04/12/2025 2:13 PM EDT A Body Mass Index follow-up plan has been documented for the patient 04/12/2025 3:26 PM EDT documented as of this encounter Care Teams Professional Benefits Sales Consultant Relationship Specialty Start Date End Date Rigo Maza MD [address] [facility] [place] [address] PCP - General 04/09/25 documented as of this encounter
--- OUTSIDE RECORDS SUMMARY | 2025-06-10 10:54 | XMS_ITS | Encounter Summary ---
Author Organization Healthcare Address [address] [place] [address] Care Team Providers Care Sofa Inspector Name Role Phone Rigo Maza MD Primary Care Provider [phone] Reason for Referral * Consultation (Routine) - Authorized Specialty Diagnoses / Procedures Referred By Maricarmen elmore Referred To Contact Otolaryngology Diagnoses Nasal septal deviation Nasal turbinate hypertrophy Sumit Shipley APRN [address] [address] Phone: tel: fax: [facility] [address], [address] [place] [address] Phone: tel: fax: Referral ID Status Reason Start Date Expiration Date Visits Requested Visits Authorized [id number] Authorized Specialty Services Required 05/27/2025 11/26/2026 1 1 Encounter Details Date Type Department Care Team (Late st Contact Info) Description 05/27/2025 Orders Only [facility] Medicine Specialties [address], [address] [place] [address] Sumit Shipley APRN [address] [facility] [address] [place] [address] Nasal septal deviation (Primary Dx); Nasal turbinate hypertrophy Social History Tobacco Use Types Packs/Day Years [...] Info) Description 06/21/2025 11:00 AM EDT Consult [facility] [address], [address] [place] [address] Javier Dhillon MD [address] [place] [address] 08/10/2025 10:00 AM EST Office Visit [facility] Medicine Specialties [address], [address] [place] [address] Sumit Shipley, METROLOGIST [address] [place] [address] Scheduled Referrals Name Type Priority Associated Diagnoses Orde r Schedule Ambulatory referral to ENT Outpatient Referral Routine Nasal septal deviation Nasal turbinate hypertrophy Expected: 05/27/2025 (Approximate), Expires: 11/28/2026 documented as of this encounter Visit Diagnoses Diagnosis Nasal septal deviation- Primary Deviated nasal septum Nasal turbinate hypertrophy Hypertrophy of nasal turbinates documented in this encounter Additional Health Concerns Assessment Noted Time A fall risk assessment has been complete d for the patient 05/10/2025 3:51 PM EDT A Body Mass Index follow-up plan has been documented for the patient 05/10/2025 4:33 PM EDT documented as of this encounter Care Teams Sofa Inspector Relationship Specialty Start Date End Date Rigo Maza MD [address] [place] [address] PCP - General 04/09/25 documented as of this encounter
--- OUTSIDE RECORDS SUMMARY | 2025-06-10 10:54 | XMS_ITS | Clinical Summary ---
Author Organization Healthcare Address [address] [place] [address] Care Team Providers Care Academic Counselor Name Role Phone Rigo Maza MD Primary Care Provider [phone] Allergies Active Allergy Reactions Criticality Noted Date Comments Penicillins Unknown - Patient st ates they do not know rxn details Low 12/08/2009 Was told this by Medications fluticasone (Flonase) 50 MCG/ACT nasal spray instill 1 spray into each nostril 2 times a day 5 Active budesonide-formo terol (Symbicort) 160-4.5 MCG/ACT inhalerIndicatio ns:Chronic obstructive pulmonary disease, unspecified COPD type (CMS/HCC) Inhale 2 puffs 2 times a day. Use with spacer. Rinse mouth with water after use to reduce aftertaste and incidence of candidiasis. Do not swallow. 10.2 g 11 5 Active Spacer/Aero-Hold ing Chambers deviceIndication s:Chronic obstructive pulmonary disease, unspecified COPD type (CMS/HCC) For use with Symbicort 1 Units 5 Active Spiriva Respimat 2.5 MCG/ACT inhalerIndicatio ns:Chronic obstructive pulmonary disease, unspecified COPD type (CMS/HCC) Inhale 2 puffs daily. 4 g 11 5 Active albuterol 108 (90 Base) MCG/ACT inhalerIndicatio ns:Chronic obstructive pulmonary disease, unspecified COPD type (CMS/HCC) Inhale 2 puffs every 4 hours as needed for wheezing or shortness of breath (or cough). 18 g 4 5 Active Active Problems No known active problems Encounters Date Type Department Care Team Description 05/27/2025 Telephone [facility] Otolaryngology [address] [facility], [address]rd [place] [address] Minor Espino 05/27/2025 Orders Only [facility] Medicine Specialties [address] [facility], [address] [place] [phone] Sumit Shipley, TAYLOR Nasal septal deviation (Primary Dx); Nasal turbinate hypertrophy 05/27/2025 Telephone [facility] Medicine Specialties [address] [place] [address], [address] [place] [phone] Mary Crespo RN 05/10/2025 4:00 PM EDT Office Visit [facility] Medicine [address], [address] [place] [phone] Sumit Shipley, TAYLOR Chronic obstructive pulmonary disease, unspecified COPD type (CMS/HCC) (Primary Dx); Centrilobular emphysema (CMS/HCC); Current smoker; History of MAC infection; Irregular heart rate; Abnormal ECG; Aneurysm of ascending aorta without rupture (CMS/HCC); Underweight (BMI < 18.5) 05/10/2025 3:00 PM EDT Ancillary Procedure [facility] Medicine Specialties [address] [place] [phone] Chronic obstructive pulmonary disease, unspecified COPD type (CMS/HCC) 05/10/2025 1:22 PM EDT - 05/10/2025 11:59 PM EDT Hospital Encounter [facility] [address] [place] [address] Chronic obstructive pulmonary disease, unspecified COPD type (CMS/HCC); History of MAC infection Discharge Disposition: Home or Self Care 05/10/2025 Travel 04/16/2025 Telephone [facility] Medicine Specialties [address] [place] [address], [address] [place] [phone] Sumit Shipley APRN 04/13/2025 Results Follow-Up [facility] Medicine [address], [address] [place] [phone] Sumit Shipley APRN 04/12/2025 3:45 PM EDT - 04/12/2025 11:59 PM EDT Hospital Encounter Cardiac Imaging [address] [place] [address] Irregular heart rate Discharge Disposition: Home or Self Care 04/12/2025 2:30 PM EDT [facility] Medicine Specialties [address], [address] [place] [address] Sumit Shipley, HEATING AND REFRIGERATION INSPECTOR Chronic obstructive pulmonary disease, unspecified COPD type (CMS/HCC) (Primary Dx); Current smoker; History of MAC infection; Multiple lung nodules; Irregular heart rate 04/12/2025 Travel from Last 3 Months Social History Tobacco Use Types Packs/Day Years [...] Pulse 70 05/10/2025 3:47 PM EDT Temperature 36.7 C (98.1 F) 04/12/2025 2:05 PM EDT Respiratory Rate 18 05/10/2025 3:47 PM EDT Oxygen Saturation 95% 05/10/2025 3:47 PM EDT RA Inhaled Oxygen Concentration - - Weight 45.2 kg (99 lb 10.4 oz) 05/10/2025 3:47 P M EDT Height 180.3 cm (5' 11 ) 05/10/2025 3:47 PM EDT Body Mass Index 13.9 05/10/2025 3:47 PM EDT Plan of Treatment Upcoming Encounters Date Type Department Care Team (Late st Contact Info) Description 06/21/2025 11:00 AM EDT Consult [facility] Otolaryngology [address], [address] [place] [address] Javier Dhillon MD [address] [place] [address] 08/10/2025 10:00 AM EST Office Visit [facility] Medicine Specialties [address], [address] [place] [address] Sumit Shipley, HEATING AND REFRIGERATION INSPECTOR [address] [place] [address] Health Maintenance Due Date Last Done Comments [facility]-Hepatitis C Screening 1945 [facility]-Medicare Annual Wellness (AWV) 1945 [facility]-/Child/Adol SDOH Screenings 1947 [facility]- SDOH Screenings 1965 [facility]-Adult SDOH Screenings 1965 [facility]-Zoster Vaccines (1 of 2) 1997 [facility]-DTaP,Tdap,and Td Vaccines (1 - Tdap) 03/31/2008 03/30/2008 [facility]-RSV Vaccine: 60+ Years or (1 - 1-dose 75+ series) 2022 [facility]-90 Vaccine (3 - season) 2024 08/07/2021, 02/10/2021 [facility]-Influenza Vaccine (#1) 2025 [facility]-Depression Screening 04/12/2026 04/12/2025 [facility]-Lung Cancer Screening 05/10/2026 05/10/2025 [facility]-Pneumococcal Vaccine: 50+ Years Completed 05/29/2024, 02/28/2013, 10/03/2010 HPV Vaccines Aged Out No longer eligi [...] on patient's age to complete this topic Procedures Procedure Name Priority Date/Time Associated Diagnosis Comments HC PULM FUNCT TST PLETHYSMOGRAP - PLETHYSMOGRAPHY Routine 05/10/2025 3:30 PM EDT Chronic obstructive pulmonary disease, unspecified COPD type (CMS/HCC) CT CHEST WO IV CONTRAST Routine 05/10/20 25 2:31 PM EDT Chronic obstructive pulmonary disease, unspecified COPD type (CMS/HCC) History of MAC infection CBC WITH AUTO DIFFERENTIAL Routine 04/12/2025 4:45 PM EDT Chronic obstructive pulmonary disease, unspecified COPD type (CMS/HCC) IMMUNOGLOBULIN E Routine 04/12/2025 4:45 PM EDT Chronic obstructive pulmonary disease, unspecified COPD type (CMS/HCC) ALPHA 1 ANTITRYPSIN PHENOTYPE(INCLUDES EKZKQ-2-DVCQCHVTBWW)SO (SO) Routine 04/12/2025 4:45 PM EDT Chronic obstructive pulmonary disease, unspecified COPD type (CMS/HCC) ECG ADULT Routine 04/12/2025 4:11 PM EDT Irregular heart rate from Last 3 Months Results * (ABNORMAL) Pulmonary function test (05/10/2025 3:30 PM EDT) LNE5DZR 1.38(A) 2.96 - 5.23 L VYAIRE PFT FVC PRED 4.08 VYAIRE PFT FVC LLN 2.96 VYAIRE PFT FVCPREZSCORE -4.02 VYAIRE PFT FVCPRE%PRED 34 % % VYAIRE PFT [facility] (2011[facility] VYAIRE PFT FVC Z-SCORE -4.02 VYAIRE PFT FEV1 PRE 0.50(A) 2.11 - 3.87 L VYAIRE PFT FEV1 PRED 3.02 VYAIRE PFT FEV1 LLN 2.11 VYAIRE PFT UKP2VKVZDIMIB -4.05 VYAIRE PFT FEV1_Pre%Pred 16 % % [facility] (2011) VYAIRE PFT FEV1 Z-SCORE -4.05 VYAIRE PFT FEV1/FVC PRE 36.07(A) 60.18 - 87.76 % VYAIRE PFT ABM0OTFSMSH 75 VYAIRE PFT WRQ3CKWGBK 60 VYAIRE PFT PPM7RDLGOVDGIVDG -3.91 VYAIRE PFT TIS6NPMNYO%PRED 48 % % VYAIRE PFT AKK0DTHFDFAY [facility] (2011) VYAIRE PFT ZBV2DFGWDGAJU -4 VYAIRE PFT YUC38-03% PRE 0.23(A) 0.83 - 4.06 L/s VYAIRE PFT KER57-74%_Pred 2.14 VYAIRE PFT SSK1244%LLN 0.83 VYAIRE PFT WOY9156%PREZSCORE -2.95 VYAIRE PFT GYH6878%PRE%PRED 11 % % VYAIRE PFT QAO7286%[facility]ED[facility] (2011) VYAIRE PFT PEF PRE 0.92(A) 5.32 - 10.09 L/s VYAIRE PFT PEF PRED 7.71 VYAIRE PFT PEF LLN 5.32 VYAIRE PFT PEFPREZSCORE -4.69 VYAIRE PFT PEFPRE%PRED 12 % % VYAIRE PFT PEF [facility]AN[facility] III (1998) VYAIRE PFT JFIQTYBVUTZHXRGA2MXD 3.92(A) 18.35 - 33.69 ml/(min* mmHg) VYAIRE PFT DLCOSINGLEBREATH PRED 25.32 VYAIRE PFT DLCOSINGLEBREATH LLN 18.35 VYAIRE PFT DLCOSINGLEBREATH Z-SCORE -7.19 VYAIRE PFT DLCOSINGLEBREATH % PRED 15.5 % VYAIRE PFT DLCOSINGLEBREATH PR[facility] Stanojevic TLCO GLI (2019) VYAIRE PFT DLCOSINGLEBREATH Z-SCORE -7.19 05/10/2025 3:26 PM EDT VYAIRE PFT KNQOEJTCWDXBVKANW6AS E 3.92(A) 18.35 - 33.69 ml/(min* mmHg) VYAIRE PFT DLCOCSINGLEBREATH PRED 25.32 VYAIRE PFT DLCOCSINGLEBREATH LLN 18.35 VYAIRE PFT DLCOCSINGLEBREATH Z-SCORE -7.19 VYAIRE PFT DLCOCSINGLEBREATH % PRED 15.5 % VYAIRE PFT DLCOCSINGLEBREATH PR[facility] Stanojevic TLCO GLI (2019) VYAIRE PFT SBYDFL8UHD 0.94(A) 2.83 - 5.03 ml/(min* mmHg*L) VYAIRE PFT DLCOVAPRED 3.88 VYAIRE PFT DLCOVALLN 2.83 VYAIRE PFT DLCOVAZSCORE -5.29 VYAIRE PFT DLCOVA%PRED 24.3 % VYAIRE PFT DLCOVAPREDAUT Stanojevic TLCO GLI (2019) VYAIRE PFT DLCOVAZSCORE -5.29 05/10/2025 3:26 PM EDT VYAIRE PFT YSTKUPXMV3ZGZ 0.94(A) 2.83 - 5.03 ml/(min* mmHg*L) VYAIRE PFT DLCOC SB/VA PRED 3.88 VYAIRE PFT DLCOC SB/VA LLN 2.83 VYAIRE PFT DLCOC SB/VA Z-SCORE -5.29 VYAIRE PFT DLCOC SB/VA % PRED 24.3 % VYAIRE PFT DLCOC SB/VA PREDAUTH Stanojevic TLCO GLI (2019) VYAIRE PFT DLCOC SB/VA Z-SCORE -5.29 05/10 3:26 PM EDT VYAIRE PFT PQTKPSLMTTALHR1ODU 4.16(A) 5.26 - 7.95 L VYAIRE PFT VASINGLEBREATH PRED 6.55 VYAIRE PFT VASINGLEBREATH LLN 5.26 VYAIRE PFT VASINGLEBREATH Z-SCORE -3.17 VYAIRE PFT VASINGLEBREATH % PRED 63.5 % VYAIRE PFT VASINGLEBREATH PREDPRES[facility] Stanojevic TLCO GLI (2019) VYAIRE PFT VASINGLEBREATH Z-SCORE -3.17 05/10/2025 3:26 PM EDT VYAIRE PFT OMJTHYTTCWAXIPY1OEP 1.89(A) 2.96 - 5.23 L VYAIRE PFT IVCSINGLEBREATH PRED 4.08 VYAIRE PFT IVCSINGLEBREATH LLN 2.96 VYAIRE PFT IVCSINGLEBREATH Z-SCORE -3.24 VYAIRE PFT IVCSINGLEBREATH % PRED 46.3 % VYAIRE PFT IVCSINGLEBREATH PRED[facility] US_Quanjer GLI (2011) VYAIRE PFT CHARLIE% VCMAX PRE 100.00 % VYAIRE PFT TLC SB PRE 4.26(A) 5.70 - 8.95 L VYAIRE PFT TLCSINGLEBREATH PRED 7.32 VYAIRE PFT TLCSINGLEBREATH LLN 5.70 VYAIRE PFT TLCSINGLEBREATH Z-SCORE -3.15 VYAIRE PFT TLCSINGLEBREATH % PRED 58.2 % VYAIRE PFT TLCSINGLEBREATH PR[facility]PRES[facility] Lung volumes GLI (2019)__ VYAIRE PFT HB PRE 14.60 g(Hb)/dL VYAIRE PFT CLA7JTE 8.53 5.70 - 8.95 L VYAIRE PFT TLCPRED 7.32 VYAIRE PFT TLCLLN 5.70 VYAIRE PFT TLCULN 8.95 VYAIRE PFT TLCZSCORE 1.22 VYAIRE PFT TLC%PRED 116.6 % VYAIRE PFT TLCPREDAUTCommunity Memorial Hospital Lung volumes GLI (2019)__ VYAIRE PFT VC0PRE 1.68(A) 2.96 - 5.23 L VYAIRE PFT VCPRED 4.08 VYAIRE PFT VCLLN 2.96 VYAIRE PFT VCULN 5.23 VYAIRE PFT VCZSCORE -3.55 VYAIRE PFT VC%PRED 41.2 % VYAIRE PFT VCPREDAUT US_[facility] GLI (2011) VYAIRE PFT IC0PRE 0.83(A) 2.08 - 3.90 L VYAIRE PFT ICPRED 3.01 VYAIRE PFT ICLLN 2.08 VYAIRE PFT ICULN 3.90 VYAIRE PFT IC Z-SCORE -3.68 VYAIRE PFT IC%PRED 27.6 % [facility]AIRE PFT ICPREDHe[facility] Center Lung volumes GLI (2019)__ VYAIRE PFT IAKUULGT7SBZ 7.69(A) 2.92 - 5.74 L VYAIRE PFT FRCPLETH PRED 4.17 VYAIRE PFT FRCPLETH LLN 2.92 VYAIRE PFT FRCPLETH ULN 5.74 VYAIRE PFT FRCPLETH Z-SCORE 3.32 VYAIRE PFT FRCPLETH % PRED 184.5 % VYAIRE PFT FRCPLET PREDAUTCommunity Memorial Hospital Lung volumes GLI (2019)__ VYAIRE PFT VJC9ENT 0.85 0.36 - 2.72 L VYAIRE PFT ERVPRED 1.30 VYAIRE PFT ERVLLN 0.36 VYAIRE PFT ERVULN 2.72 VYAIRE PFT ERV Z-SCORE -0.67 VYAIRE PFT ERV%PRED 65.7 % VYAIRE PFT ERVPREDHebrew Rehabilitation Center Lung volumes GLI (2019)__ VYAIRE PFT RV0PRE 6.84(A) 1.58 - 4.38 L VYAIRE PFT RVPRED 2.84 VYAIRE PFT RVLLN 1.58 VYAIRE PFT RVULN 4.38 VYAIRE PFT RVZSCORE 3.84 VYAIRE PFT RV%PRED 240.8 % VYAIRE PFT RVPREDAUTH [facility] Lung volumes GLI (2019)__ VYAIRE PFT RV%QXV2KWY 80.25(A) 26.62 - 53.39 % VYAIRE PFT RV%TLCPRED 40 VYAIRE PFT RV%TLCLLN 27 VYAIRE PFT RV%TLCULN 53 VYAIRE PFT RV%TLCZSCORE 4.72 VYAIRE PFT RV%TLC%PRED 202.2 % VYAIRE PFT RV%TLCPREDAUTH [facility] Lung volumes GLI (2019)__ VYAIRE PFT Anatomical Region Laterality Modality PFT 05/10/2025 3:08 PM EDT Narrative 05/10/2025 7:18 PM EDT Pulmonary Function Testing Report Ric Forde underwent pulmonary function testing today at [facility]. The patient underwent spirometry, lung volumes [...] CT PROCEDURES Final R esult * (ABNORMAL) Ajpet-7-Vwuhdescbdl Enzyme Conc and Phenotype (SO) (04/12/2025 4:45 PM EDT) Pathologist [facility] ALPHA 1 ANTITRYPSIN 230(H) 90 - 200 mg/dL 04/16/2025 11:12 PM EDT [facility]) A1A Phenotype M1M1 04/16/2025 11:12 PM EDT [facility] ([facility]) Blood Venous blood specimen / Unknown Venipuncture / Unknown 04/12/2025 4:45 PM EDT 04/12/2025 4:45 PM EDT Narrative [facility] ([facility]) - 04/16/2025 11:12 PM EDT To convert to umol/L, multiply mg/dL by 0.185 The patient appears to have a normal phenotype. All M alleles (including subtypes M1, M2, and M3) produce normal serum concentrations of zklio-6-mdakqkzk inhibitor and are not associated with clinical disease. Caution in interpretation is advised if the patient has been transfused within the previous 21 days. Performed By: BPT [address] [place], [place] [id number] Director Talent Management: Lamonte Linn MD, PhD CLIA Number: [id number] Sumit Shipley APRN LAB BLOOD ORDERABLES Inga l Result [facility]) [address] [place] [id number] * (ABNORMAL) CBC and differential (04/12/2025 4:45 PM EDT) [facility] WBC Count 9.43 3.70 - 10.30 10*3/uL LAB HEMATOLOGY METHOD 04/12/2025 6:14 PM EDT [facility] RBC Count 4.60 4.60 - 6.10 10*6/uL LAB HEMATOLOGY METHOD 04/12/2025 6:14 PM EDT [facility] HGB 13.7 13.7 - 17.5 g/dL LAB HEMATOLOGY METHOD 04/12/2025 6:14 PM EDT [facility] HCT 43.8 40.0 - 51.0 % LAB HEMATOLOGY METHOD 04/12/2025 6:14 PM EDT [facility] Platelet Count 327 155 - 369 10*3/uL LAB HEMATOLOGY METHOD 04/12/2025 6:14 PM EDT [facility] MCV 95 79 - 98 fL LAB HEMATOLOGY METHOD 04/12/2025 6:14 PM EDT [facility] MCH 29.8 26.0 - 32.0 pg LAB HEMATOLOGY METHOD 04/12/2025 6:14 PM EDT [facility] MCHC 31.3 30.7 - 35.5 g/dL LAB HEMATOLOGY METHOD 04/12/2025 6:14 PM EDT [facility] RDW 12.6 11.5 - 14.5 % LAB HEMATOLOGY METHOD 04/12/2025 6:14 PM EDT [facility] MPV 10.6 8.8 - 12.5 fL LAB HEMATOLOGY METHOD 04/12/2025 6:14 PM EDT [facility] nRBC 0.0 <=0.0 per 100 WBCs LAB HEMATOLOGY METHOD 04/12/2025 6:14 PM EDT [facility] Differential Type Automated LAB HEMATOLOGY METHOD 04/12/2025 6:14 PM EDT [facility] Neutrophils % 82 % LAB HEMATOLOGY METHOD 04/12/2025 6:14 PM EDT [facility] Lymphocytes % 8 % LAB HEMATOLOGY METHOD 04/12/2025 6:14 PM EDT [facility] Monocytes % 7 % LAB HEMATOLOGY METHOD 04/12/2025 6:14 PM EDT [facility] Eosinophils % 2 % LAB HEMATOLOGY METHOD 04/12/2025 6:14 PM EDT [facility] Basophils % 1 % LAB HEMATOLOGY METHOD 04/12/2025 6:14 PM EDT [facility] Immature Granulocytes % 0 % LAB HEMATOLOGY METHOD 04/12/2025 6:14 PM EDT [facility] Neutrophils Absolute 7.86(H) 1.60 - 6.10 10*3/uL LAB HEMATOLOGY METHOD 04/12/2025 6:14 PM EDT [facility] Lymphocytes Absolute 0.71(L) 1.20 - 3.90 10*3/uL LAB HEMATOLOGY METHOD 04/12/2025 6:14 PM EDT [facility] Monocytes Absolute 0.62 0.30 - 0.90 10*3/uL LAB HEMATOLOGY METHOD 04/12/2025 6:14 PM EDT [facility] Eosinophils Absolute 0.16 0.00 - 0.50 10*3/uL LAB HEMATOLOGY METHOD 04/12/2025 6:14 PM EDT [facility] Basophils Absolute 0.05 0.00 - 0.10 10*3/uL LAB HEMATOLOGY METHOD 04/12/2025 6:14 PM EDT [facility] Immature Granulocytes Absolute 0.03 0.00 - 0.06 10*3/uL LAB HEMATOLOGY METHOD 04/12/2025 6:14 PM EDT [facility] Blood Venous blood specimen / Unknown Venipuncture / Unknown 04/12/2025 4:45 PM EDT 04/12/2025 4:45 PM EDT [facility] - 04/12/2025 6:14 PM EDT Therapeutic decision making should be based on absolute values, rather than percentages. us Sumit Shipley APRN LAB BLOOD ORDERABLES Inga l Result [facility] [address] [place] [address] * IgE (04/12/2025 4:45 PM EDT) Immunoglobulin E 34 <=214 kU/L 04/16/20 5:11 AM EDT [facility] ([employer]) Blood Venous blood specimen / Unknown Venipuncture / Unknown 04/12/2025 4:45 PM EDT 04/12/2025 4:45 PM EDT Narrative [facility] ([employer]) - 04/16/2025 5:11 AM EDT REFERENCE INTERVAL: Immunoglobulin E, Serum Access complete set of age- and/or gender-specific reference intervals for this test in the [employer] [facility] Laboratory Test Directory ([employer]). Performed By: BPT [address] [place] [address] Director Talent Management: Lamonte Linn MD, PhD CLIA Number: [id number] Sumit Shipley APRN LAB BLOOD ORDERABLES Inga l Result Performing Organization Address [facility] Co de Phone Number [facility] ([facility]) [address] [place] [address] * ECG Adult (Performed in Heart Station) (04/12/2025 4:11 PM EDT) EKG DIAGNOSIS CLASS Abnormal MUSE ECG Ventricular Rate 89 BPM MUSE ECG Atrial Rate 89 BPM MUSE ECG WI Interval 170 ms MUSE ECG QRSD Interval 72 ms MUSE ECG QT Interval 354 ms MUSE ECG QTC Interval 430 ms MUSE ECG P [place] 89 degrees MUSE ECG R [place] 85 degrees MUSE ECG T Wave [place] 80 degrees MUSE ECG Diagnosis Sinus rhythm with marked sinus arrhythmia MUSE ECG Diagnosis Anterolateral infarct , age undetermined MUSE ECG Diagnosis Abnormal ECG MUSE ECG Diagnosis MUSE ECG Diagnosis Confirmed by Jerod Kat ([id number]) on 04/12/2025 5:32:25 PM MUSE ECG 04/12/2025 4:11 PM EDT 04/12/2025 5:32 PM EDT Sumit Shipley HEATING AND REFRIGERATION INSPECTOR ECG ORDERABLES Final Res ult Performing Organization Address [facility] Co de Phone Number MUSE ECG from Last 3 Months Insurance [facility] MEDICARE Care Teams Academic Counselor Relationship Specialty Start Date End Date Rigo Maza MD [address] [facility] [place] [address] PCP - General 04/09/25
--- OUTSIDE RECORDS SUMMARY | 2025-06-10 10:54 | XMS_ITS | Encounter Summary ---
Author Organization Healthcare Address [address] [place] [address] Care Team Providers Care Cadmium Plater Name Role Phone Rigo Maza MD Primary Care Provider Reason for Referral * Consultation (Routine) - Authorized Specialty Diagnoses / Procedures Referred By Maricarmen elmore Referred To Contact Cardiology Diagnoses Abnormal ECG Sumit Shipley APRN [address] [facility] [address] [place] [address] Phone: tel: fax: Referral ID Status Reason Start Date Expiration Date Visits Requested Visits Authorized [id number] Authorized Specialty Services Required 04/13/2025 10/13/2026 1 1 Scheduling Instructions Marked sinus arrhythmia Anterolateral infarct , age undetermined Encounter Details Date Type Department Care Team (Late st Contact Info) Description 04/13/2025 Results Follow-Up [facility] [address] [place] [address] Sumit Shipley APRN [address] [facility] [address] [place] [address] Social History Tobacco Use Types [...] Info) Description 06/21/2025 11:00 AM EDT Consult [facility] [address] [place] [id number] Javier Dhillon MD [address] [place] [address] 08/10/2025 10:00 AM EST Office Visit [facility] [address] [place] [address] Sumit Shipley, JUNIOR HIGH MATH TEACHER [address] [place] [address] Scheduled Referrals Name Type Priority Associated Diagnoses Order Schedule Ambulatory referral to Cardiology Outpatient Referral Routine Abnormal ECG Expected: 04/13/2025 (Approximate), Expires: 10/14/2026 documented as of this encounter Visit Diagnoses Diagnosis Irregular heart rate- Primary Abnormal ECG Nonspecific abnormal electrocardiogram (ECG) (EKG) documented in this encounter Additional Health Concerns Assessment Noted Time A fall risk assessment has been complete d for the patient 04/12/2025 2:13 PM EDT A Body Mass Index follow-up plan has been documented for the patient 04/12/2025 3:26 PM EDT documented as of this encounter Care Teams Cadmium Plater Relationship Specialty Start Date End Date Rigo Maza MD [address] [place], [place] [id number] PCP - General 04/09/25 documented as of this encounter
--- OUTSIDE RECORDS SUMMARY | 2025-06-10 10:54 | XMS_ITS | Encounter Summary ---
Author Organization Healthcare Address [address] [place] [address] Care Team Providers Care Angiography Technologist Name Role Phone Rigo Maza MD Primary Care Provider [phone] Encounter Details Date Type Department Care Team (Late Contact Info) Description 05/27/2025 Telephone [facility] Medicine Specialties [address] [place] [address] Mary Crespo RN [facility]-VASCULAR & INTERVENTIONAL RADIOLOGY Social History Tobacco Use Types Packs/Day Years [...] Info) Description 06/21/2025 11:00 AM EDT Consult [facility] Otolaryngology [address] [place] [address] Javier Dhillon MD [address] [place] [address] 08/10/2025 10:00 AM EST Office Visit [facility] [address] [place] [address] Sumit Shipley, MANAGER FUNCTIONAL [address] [place] [address] documented as of this encounter Visit Diagnoses Not on filedocumented in this encounter Additional Health Concerns Assessment Noted Time A fall risk assessment has been complete d for the patient 05/10/2025 3:51 PM EDT A Body Mass Index follow-up plan has been documented for the patient 05/10/2025 4:33 PM EDT documented as of this encounter Care Teams Angiography Technologist Relationship Specialty Start Date End Date Rigo Maza MD [address] [place], [place] [id number] PCP - General 04/09/25 documented as of this encounter
== END 2025-06-10 23:59 | disposition home or self-care (01) ==
LOC: RT 10:41
PROVIDERS: PCP Family Medicine; Visit Provider Family Medicine
DX: I73.9 Peripheral vascular disease, unspecified (principal); L97.329 Non-pressure chronic ulcer of left ankle with unspecified severity; F17.200 Nicotine dependence, unspecified, uncomplicated
CPT/HCPCS: 93923

== ENCOUNTER 2025-06-24 13:00 | Outpatient (RCR) | payer MEDICARE, SELFPAY | END 2025-06-24 23:59 | disposition home or self-care (01) | LOC: PT 13:00 | PROVIDERS: Visit Provider Family Medicine | DX: L97.329 Non-pressure chronic ulcer of left ankle with unspecified severity (principal); I73.9 Peripheral vascular disease, unspecified | CPT/HCPCS: 97163; 97597 ==

== ENCOUNTER → 2025-07-07 08:47 | Day surgery (SDC) | payer MEDICARE, SELFPAY ==
[2025-07-07 08:51] VITALS: BMI 13.5
[2025-07-07 09:00] VITALS: BP 161/71; PULSE 76; RESP 18; TEMP 37; O2SAT 95
[2025-07-07 09:25] LABS: Hematocrit 40.8 % (42.0-52.0); Hemoglobin 13.4 g/dL (14.1-18.0); Immature Granulocytes % 0.1 %; Mean Corpuscular HGB Conc 32.8 g/dL (31.8-35.4); Mean Corpuscular Hemoglobin 30.9 pg (27.0-31.2); Mean Corpuscular Volume 94.2 fl (80-94); Nucleated Red Blood Cells % 0 %; Platelet Count 216 K/mm3 (142-424); Red Blood Count 4.33 M/mm3 (4.60-6.20); Red Cell Distribution Width-SD 43.9 fL; White Blood Count 7.3 K/mm3 (4.8-10.8)
--- NOTE | 2025-07-07 10:39 | SUR.PHASEII ---
unable to obtain bmp results at this time, patient given option to wait or return another day. Patient rescheduled for Saturday due to another apt that day for echocardiogram.
== END | disposition home or self-care (01) ==
PROVIDERS: PCP Family Medicine; Visit Provider Internal Medicine
DX: I70.213 Atherosclerosis of native arteries of extremities with intermittent claudication, bilateral legs (principal); Z53.8 Procedure and treatment not carried out for other reasons; R93.1 Abnormal findings on diagnostic imaging of heart and coronary circulation; J44.9 Chronic obstructive pulmonary disease, unspecified; Z87.891 Personal history of nicotine dependence; Z79.02 Long term (current) use of antithrombotics/antiplatelets; Z79.51 Long term (current) use of inhaled steroids; Z79.899 Other long term (current) drug therapy; Z88.0 Allergy status to penicillin
CPT/HCPCS: 85025; J2003

== ENCOUNTER 2025-07-12 08:44 | Day surgery (SDC) | payer MEDICARE, SELFPAY ==
[2025-07-12] VITALS (15 sets, daily range): BP systolic 93–169; BP diastolic 48–82; PULSE 58–80; RESP 16–20; O2SAT 92–99; BMI 13.5
--- NOTE | 2025-07-12 07:10 | IR_ITS ---
APPROVED REPORT Patient Location: Outpatient PROCEDURES Right femoral arterial access Pigtail catheter placement abdominal aorta Abdominal aortography Repositioning of the catheter in the abdominal aorta Bilateral iliofemoral runoff INDICATION Abnormal GERRI, Alexei claudication class IV 5 to V Informed consent was obtained prior to the procedure. COMPLICATIONS NONE Estimated Blood Loss: LESS THAN 10 ML TECHNIQUE 1% lidocaine used to size right groin the right femoral artery is accessed via the center technique and a 5 Marshallese sheath is placed in the right femoral artery. A pigtail catheter was advanced to the abdominal aorta where abdominal aortography was performed. The catheter was then repositioned and bilateral iliofemoral runoff was performed. At the end procedure the apparatus was removed the sheath was removed and hemostasis was achieved using manual pressure patient was transferred to the postoperative in stable condition ANGIOGRAPHIC RESULTS Infrarenal abdominal aorta is widely patent with minimal atherosclerotic plaque. The bilateral common iliac arteries are calcified with diffuse 30% stenoses. The right internal iliac artery is occluded proximally while the left internal iliac artery is widely patent. The right external iliac artery has mild atheromatous plaque while the right common femoral artery has a concentric 80 to 90% stenosis at the insertion site. The right superficial femoral artery is ostially occluded and then reconstitutes at Balta's canal via a widely patent profunda femoris. The right popliteal artery has proximal 80% tandem stenoses with diffuse 40 and 50% mid vessel distal stenoses. The anterior tibialis artery is initially proximally patent and then becomes occluded. The posterior tibialis artery and peroneal artery are patent The left external iliac artery has a calcified 60% stenosis followed by an additional 40% stenosis at the left common femoral artery. The left superficial femoral artery is ostially occluded and occluded throughout its entire course. The profunda femoris artery is widely patent and then reconstitutes into the mid popliteal artery at the pregeniculate plate. There is two-vessel runoff below the knee from the peroneal artery and the posterior tibialis artery while the left anterior tibialis arteries proximally occluded IMPRESSION Peripheral artery disease as described above PLAN 1. Recommend medical management with absolute tobacco cessation 2. If LDL less than 55 to be achieved with high intensity statin 3. Patient barely weighs 100 pounds and has diffuse disease. Opening the left superficial femoral artery and proximal half of the popliteal artery is technically feasible however the short and long-term patency would be limited especially given patient's small size and ongoing tobacco usage 4. It may be worthwhile to ask a surgeon if a femoropopliteal procedure is reasonable. Given patient's advanced emphysema small body size and extensive peripheral artery disease it is unlikely he would be offered this surgical revascularization. 5. If the left lower extremity wound does not heal or worsens I would consider bringing patient back in stenting the left external iliac artery and consider opening the popliteal artery. My concern is the stent in the left superficial femoral artery would extend back and could easily cross over the profunda femoris artery and if the profunda femoris artery were lost patient would lose his entire leg and most likely not survive amputation. Unless patient is experiencing critical limb ischemia only then what I consider revascularizing the leg. At this point patient's wound appears to be improving according to his therefore I would give this additional time and revisit if critical limb ischemia resurfaces Electronically signed by : Bin Schmitz MD 07/12/2025 12:57:05
[2025-07-12] MEDS: HEPARIN 1,000 UNITS/500ML NS (CATH LAB) 3000 UNIT IV (09:32)
[2025-07-12] MEDS: FENTANYL 100MCG/2ML VIAL 50 MCG IV (09:33)
[2025-07-12] MEDS: LIDOCAINE 1% 10ML MDV 10 ML IJ (09:33)
[2025-07-12] MEDS: 0.9 % SODIUM CHLORIDE 500 ML 25 ML IV (09:33)
[2025-07-12] MEDS: MIDAZOLAM HCL 1MG/ML 5ML VIAL 1 MG IV (09:34)
--- NOTE | 2025-07-12 14:31 | CA_ITS ---
APPROVED REPORT EXAM: Comprehensive 2D, Doppler, and color-flow Echocardiogram Dialer: Tiffany Hyatt RT(R) Ht: 5 ft 11 in Wt: 97lbs BSA: 1.55 BP: 132/71 mmHg Indications: atypical cp, PAD, severe COPD. 2D Dimensions Left Atrium 1.63 cm M: 3.0 - 4.0 LVOT 1.95 cm (M/F) 1.5-2.5 M-Mode Dimensions RVDd 2.40 cm (0.9-2.6) LVDd 2.15 cm (3.5-5.7) Ao Diam 3.36 cm (2.0-3.7) LVDs 1.69 cm (3.5-5.7) IVSd 0.66 cm (0.6-1.1) PWd 0.66 cm (0.6-1.1) EF (Teich) 45.80% FS 21.40% EDV (Teich) 15.30 mL ESV (Teich) 8.30 mL LV Diastology E Decel Time 222 (160-240 msec) E/A Ratio 0.7 LAT E' 7.0 (>= 10 cm/sec) E/LAT E' Ratio 8.70 (<= 14) Mitral Valve MV E Max Santino. 61.0 (40-130 cm/s) MV A Velocity 87.0 (40-130 cm/s) E/A Ratio 0.70 MV Decel. Time 222 (160-240 ms) Left Ventricle The left ventricle is normal size. Left ventricular systolic function is normal. The left ventricular ejection fraction is within the normal range. There is increased left ventricular wall thickness. There is normal LV segmental wall motion. The left ventricular diastolic function is indeterminate. LVEF is 55% Right Ventricle The right ventricle is mildly dilated. The right ventricular systolic function is normal. Atria The left atrium size is normal. The right atrium size is normal. There is no color Doppler evidence of interatrial shunt. Aortic Valve The aortic valve is mildly thickened. There is no hemodynamically significant aortic valvular stenosis. Trace aortic regurgitation is present. Mitral Valve The mitral valve is normal in structure. No evidence of mitral valve stenosis. Trace mitral regurgitation is present. Tricuspid Valve The tricuspid valve leaflets are thin and pliable. Mild tricuspid regurgitation. RVSP is 20-25 mmHg. Pulmonic Valve The pulmonary valve is not well-visualized. Great Vessels The aortic root is normal in size. The ascending aorta is borderline dilated, measuring 3.7 cm in diameter. IVC is normal in size and collapses >50% with inspiration. Pericardium There is no pericardial effusion. Other Information Study Quality: Technically Difficult Conclusion Normal biventricular systolic function. No significant valvular stenosis or regurgitation. The ascending aorta is borderline dilated, measuring 3.7 cm in diameter. Correlation with your recent CTA chest is suggested. Electronically signed by : Karissa Raymond MD 07/14/2025 00:00:42
[2025-07-12] MEDS: IOPAMIDOL-370 (76%);100ML BOTTLE 90 ML IV (15:13)
== END 2025-07-12 14:25 | disposition home or self-care (01) ==
PROVIDERS: PCP Family Medicine; Visit Provider Internal Medicine
DX: I70.213 Atherosclerosis of native arteries of extremities with intermittent claudication, bilateral legs (principal); R68.89 Other general symptoms and signs; R06.09 Other forms of dyspnea; R94.31 Abnormal electrocardiogram [ECG] [EKG]; R07.89 Other chest pain; J44.9 Chronic obstructive pulmonary disease, unspecified; L98.499 Non-pressure chronic ulcer of skin of other sites with unspecified severity; Z96.649 Presence of unspecified artificial hip joint; Z87.891 Personal history of nicotine dependence; Z79.02 Long term (current) use of antithrombotics/antiplatelets; Z79.51 Long term (current) use of inhaled steroids; Z79.899 Other long term (current) drug therapy; Z88.0 Allergy status to penicillin
CPT/HCPCS: 36200; 93306; 99152; 99153; C1725; C1769; C1894; J1200; J1644; J3010; J7040; Q9967

== ENCOUNTER 2025-08-02 13:51 | Outpatient (RCR) | payer MEDICARE, SELFPAY | END 2025-08-02 23:59 | disposition home or self-care (01) | LOC: PT 13:51 | PROVIDERS: PCP Family Medicine; Visit Provider Family Medicine | DX: L97.329 Non-pressure chronic ulcer of left ankle with unspecified severity (principal); I73.9 Peripheral vascular disease, unspecified | CPT/HCPCS: 97597 ==